=== PATIENT | female | born 1930 | race Caucasian/White ===

== ENCOUNTER → 2016-03-28 | Outpatient (REF) | payer MEDICARE, OTHER ==
[~2016-03-28] MED LIST: *ANUSOI RE; /ALEN70TA; /CELE20CA; ACET500C PO; ACET65TA PO; ALBU17IN INH; ALEN70TA39 PO; AMBI5TAB OR; AMBI5TAB PO; ANUS2.5C2 EXT; ASPE10LO TD; ASPI81TA21 PO; ASPI81TA3 OR; ATIV0.5T; BABY81CH; BIOT10005 PO; CALC-205 PO; CALC25TA PO; CALCTAB22 PO; CALCTAB68 PO; CALCTAB75 PO; CENTTAB PO; CIPR500T89 PO; CIPRO PO; COLA100C2; DOXY150C PO; ERYT5OPO OU; ESTR62CR PV; EUCERIN TOP; FLAX10002 PO; FLON0.054; FOSA70TA PO; GABA-279 PO; GABA-283 PO; GABA100C PO; GABA600T PO; GLUC500T3 OR; IBUP400T OR; KEFL500C PO; LEVO25TA5 PO; LEVO500T32 PO; LIDO1OIN2 TOP; LIDO5DIS EX; LIDO5DIS36 TD; LIDO5TD TD; LORA-376 PO; LORA5SOL2 PO; MECL-68 PO; MECL25CH PO; MELA1CAP2 PO; MELA3TAB PO; MELO15TA4 PO; MELOPOW PO; METAMUCIL PO; MULT1TAB8 PO; MULTIVIT PO; NEUR100C PO; NEUR300C; NEUR600T; OXYB10TA PO; OXYC1TAB23 PO; PAIN325T OR; PARO5TAB PO; PAXI10TA; PAXI10TA OR; PAXI10TA2 PO; PAXI20TA3 PO; PAXI30TA11 PO; PENN1.5S TD; PENN1.5S2 TD; PERC5TAB8; PERC5TAB8 PO; PROA1AER INH; REST0.05 OU; ROBITUSSIN PO; ROPI0.5T PO; ROPI1TAB PO; THERGRAN; TRAM50TA2 PO; TYLE325T5 PO; TYLE500T78 PO; TYLE650T25 PO; TYLENOL ARTHRITIS PO; VERA27.5; VITA100054 PO; VITA200016 PO; VITAD1000T PO; VITMTA PO; VOLT1GEL2 TD; XYLI500M MT; ZOCO20TA; ZOCO20TA PO; ZOCO40TA PO; [UNRECOGNIZED DRUG - CODE] PO; [UNRECOGNIZED DRUG - OTHER]; [UNRECOGNIZED DRUG - OTHER] IM; [UNRECOGNIZED DRUG - OTHER] PR; [UNRECOGNIZED DRUG - OTHER] TOP; calcium citrate; compound cream TOP; estrace PV; flax seed oil PO; konsyl PO; lidoderm patch; melatonin PO; restasis OU
== END ==
LOC: M SMT 12:49
PROVIDERS: ATTEND Nurse Practitioner Family
DX: N39.41 Urge incontinence (principal)
CPT/HCPCS: 51798; 81001; 87086; G0463

== ENCOUNTER 2016-06-30 10:18 | Emergency (ER) | payer MEDICARE, OTHER ==
[~2016-06-30] VITALS: Ht 154.9 cm; Wt 68.9 kg
--- NOTE | 2016-06-30 11:17 | REP ---
CT HEAD WITHOUT CONTRAST: HISTORY: Trauma. COMPARISON: 01/13/2015. Areas of decreased attenuation are present in the periventricular and subcortical white matter. This represents small vessel ischemic disease. There is no intraparenchymal hemorrhage, mass or midline shift. The ventricular system and cortical sulci as well as subarachnoid space in the posterior fossa are dilated consistent with mild volume loss. There is no extracerebral collection. There is no fracture. The visualized sinuses are clear. IMPRESSION: 1. Small vessel ischemic disease. 2. Mild volume loss. Signed by Eren Bruce MD 06/30/2016 11:19 A
--- NOTE | 2016-06-30 11:19 | REP ---
CT ORBITS WITHOUT CONTRAST: HISTORY: Trauma. The globes, optic nerves and rectus muscles are normal in appearance. There is no orbital lesion. There is no fracture. The visualized sinuses are clear. Soft tissue swelling is present over the left orbit. IMPRESSION: There is no orbital lesion or fracture. Signed by Eren Bruce MD 06/30/2016 11:26 A
[2016-06-30 11:25] VITALS: BP 141/65
== END 2016-06-30 11:34 | disposition home or self-care (01) ==
LOC: M ED 11:21
DX: S00.12XA Contusion of left eyelid and periocular area, initial encounter (principal); W01.198A Fall on same level from slipping, tripping and stumbling with subsequent striking against other object, initial encounter; Y92.099 Unspecified place in other non-institutional residence as the place of occurrence of the external cause; Y93.89 Activity, other specified; Y99.9 Unspecified external cause status

== ENCOUNTER → 2016-10-05 | Outpatient (REF) | payer MEDICARE, OTHER ==
[~2016-10-05] MED LIST changes: +ARIC1TAB2 PO; +ASPI1TAB PO; -BIOT10005 PO; +BIOT10008 PO; +CIPR-249 PO; -CIPR500T89 PO; +COUM2.5T17 PO; +CULT10CA2 PO; +IMOD2TAB16 PO; +LEVO500T3 PO; -LEVO500T32 PO; -LIDO5DIS36 TD; +LIDO5DIS41 TD; -LORA-376 PO; +LORA0.5T11 PO; +LORA10TA2 PO; +MELO7.5T7 PO; +MEMA1TAB2 PO; +MYRB50TA PO; +NAPR1TAB41 PO; +PARO10TA3 PO; +PAXI10TA12 PO; -PAXI10TA2 PO; +PAXI20TA29 PO; -PAXI20TA3 PO; -PROA1AER INH; +PROAAER10 INH
== END ==
LOC: M LAB REF 12:50
PROVIDERS: ATTEND Internal Medicine
DX: N76.0 Acute vaginitis (principal)

== ENCOUNTER 2017-01-16 11:41 | Inpatient (IN) | payer MEDICARE, OTHER ==
[~2017-01-16] VITALS: Ht 160 cm; Wt 66.0 kg
[2017-01-16 12:15] VITALS: BP 144/64
[2017-01-16] MEDS: ACETAMINOPHEN 500 MG TAB PO SCH ×2 (14:34→21:51)
[2017-01-16] MEDS ORDERED: WARFARIN SOD 5 MG TAB PO ONE (17:00)
[2017-01-16] MEDS: GABAPENTIN 100 MG CAP PO SCH (17:02)
[2017-01-16 20:00] VITALS: BP 118/67
[2017-01-16] MEDS: GABAPENTIN 300 MG CAP PO SCH (21:51)
[2017-01-16] MEDS: MEMANTINE 5MG TABLET (NAMENDA) PO SCH (21:51)
[2017-01-16] MEDS: rOPINIRole 1MG TAB PO SCH (21:51)
[2017-01-16] MEDS: SENNA 8.6 MG TAB (SENOKOT) PO SCH (21:51)
--- NOTE | 2017-01-16 23:06 | PMRHPE ---
DATE OF ADMISSION: 01/16/2017 REASON FOR ADMISSION: Rehabilitation of left hip fracture, status post closed reduction internal fixation with cephalomedullary nail. HISTORY OF THE PRESENT ILLNESS: The patient is a right-handed elderly white female who on 01/14/2017 was at the grocery store and ended up falling onto her left side with marked pain in her left hip and was found to have sustained a left hip fracture when brought to the emergency room at [facility]. The patient was assessed and felt to be appropriate for a cephalomedullary nail insertion, and this was performed on 01/14/2017. The patient then started in physical and occupational therapy yesterday, 01/15/2017, and this right-handed elderly white female did reasonably well in it. She has been previously living independently at home with a multitude of medical problems. PAST MEDICAL HISTORY: Includes atherosclerotic cardiovascular disease with hypertension and elevated lipids, and patient now with anemia secondary to the fracture. She also has had ongoing spinal stenosis and degenerative joint disease with marked degenerative changes of the wrists and hands and moderate to severe arthritic changes of major joints. She is also hypothyroid and has osteoporosis, and is reported to have neuropathy, though it is unclear whether this is more of a radiculopathy. PAST SURGICAL HISTORY: Includes an L4-5 lumbar spine fusion 10 years ago. ALLERGIES: To BEE VENOM, DICLOFENAC, MANGOES and TAPE. 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 and 4:00 p.m. and then 600 mg at bedtime for neurogenic pain - Synthroid 25 mcg by mouth daily for hypothyroidism - loratadine 10 mg daily for allergies - Namenda 5 mg twice a day for organic brain syndrome - Paxil 10 mg per day for mood - Requip 1 mg by mouth nightly for restless leg syndrome - Patient currently on Coumadin for deep vein thrombosis (DVT) prophylaxis; to receive 5 mg tonight and subsequently will be ordered by orthopedics with target range of 1.7 to 2.0 on pro-time/INR testing. - tramadol 50 mg every 6 hours as needed for moderate to severe pain - Senokot one tablet twice a day for bowel management FAMILY HISTORY: Noncontributory to her fall. She does note having four children, and they are all healthy. SOCIAL HISTORY: The patient is , lives alone and has been modified independent in activities of daily living (ADLs) in the duplex she lives in, occasionally receiving some assistance. She is retired as a elementary school director. No tobacco, no alcohol and no illicit drug history. REVIEW OF SYSTEMS: Includes some problems with memory and feeling that sometimes she fatigues easily but otherwise negative. She does use glasses for visual correction. PHYSICAL EXAMINATION: In general, the patient is an alert and well oriented, pleasant, elderly white female who sometimes offers up different expressions of the amount of work she is anticipating doing in therapy, but then is able to express where she is at and why she is here, and her desire to work, get stronger and return home, so she can take care of her cat, as well as have her independence back. She is 5 feet 3 inches, weighs 69.5 kg. Vital Signs: Temperature is 98.9, blood pressure 144/64 with a pulse of 74, respiratory rate of 18 and oxygen saturation is 97% on room air. HEENT: Normocephalic, atraumatic, using glasses for visual correction. Hearing is fairly good. Face has normal symmetry. There is no dysarthria noticed in speech. Nasal passages are clear. Septum is straight. Tongue is midline. No carotid bruits were appreciated. The neck is supple on exam. Lungs are clear in all case to auscultation. Coronary shows a regular rate and rhythm with normal S1, S2, without S3, S4, murmurs or rub. Pulses are 2/4 bilateral radial pulses, fair perfusion and normal warmth in bilateral upper and lower extremities. Extremities with functional range of motion of bilateral upper and right lower extremity. Some guarding of the left hip area. However, there is notable nodularity seen in the MP, PIP and DIP joints of both hands and some mild atrophy seen in the hand musculature, and some arthritic change also seen in the feet. Neurologically, the patient is alert and oriented to person, place, time and general situation. Memory is fair. Speech is clear, coherent, appropriate. Affect slightly anxious with minimal flattening noted and in general, pleasant and cooperative. Light touch and vibration are intact in bilateral upper extremities but diminished in the distal lower extremities versus upper extremities and proximal lower extremities. Tone is within normal limits in bilateral upper and lower extremities. Deep tendon reflexes show 2/4 biceps, brachial radialis, 1/4 triceps, knee jerks and trace ankle jerks in a symmetrical pattern. DIAGNOSTIC DATA: Patient with good positioning on postoperative x-ray and CBC shows normal white count with moderate anemia with a hemoglobin of 9.7 and hematocrit of 29.8%. Electrolytes: BMP shows normal sodium, potassium, bicarbonate, mildly elevated at 110 chloride. BUN and creatinine are normal. Fasting blood sugar this morning, however, was 279. On INR today, the patient was 1.28, target 1.7 to 2.0. ASSESSMENT/PLAN: 1. Rehabilitation of the left hip fracture, status post cephalomedullary nail, which is in good position: Patient starting a program of physical, occupational therapy, has done reasonably well in her initial evaluations and physical therapy (PT) and occupational therapy (OT) and will now progress on to 1-1/2 hours of PT and 1-1/2 hours of OT per day to regain spinal strength and learn adaptive activities of daily living using front wheel walker to help with support and stabilization and weightbearing as tolerated status on the left lower extremity. The patient is anticipated to be able to do the 3 hours of therapy per day and progress to discharge goals to return home in a modified independent level of function in 10 days. She does seem to have fairly good motivation for this. 2. Organic brain syndrome. The patient has been doing fairly well it appears with support from Aricept and Namenda and treatment for any mood with Paxil. We will continue to observe this; however, I will go ahead and have speech therapy do cognitive memory evaluation and help the patient with organizing techniques for information so that this may help her learn appropriate safe mobility and activities of daily living. 3. Neuropathy. The patient will continue on the gabapentin. She is noted to have some distal light touch and vibratory decrease on exam. 4. Chronic diarrhea. This appears to be secondary to the Aricept and Namenda, and I will avoid using most laxatives; however, I do feel that patients with this problem tend to do better if they have a bulking agent and so I will go ahead with the Senna and avoid agents that may increase further peristalsis or add to an already overly watery diarrhea. 5. Deep vein thrombosis (DVT) prophylaxis. The patient will continue on Coumadin along with sequential compression stocking, thromboembolism deterrent (LUCÍA) hose and progressive ambulation to try to protect against any clot formation. POSTADMISSION PHYSICIAN EVALUATION: The patient is consistent with preadmission screening. She does seem to be cognitively fairly aware and understanding of the goals and objective of this admission, and we will proceed with a program of physical and occupational therapy for her hip fracture, along with speech/language pathology assessing memory and cognition, and trying to give the patient adaptic techniques so that she can apply these to the new learning in physical and occupational therapy, as well as provide better structure to her day. I do feel the patient is going to be able to participate in and benefit from 3 hours of therapy a day and has a better prognosis for return to modified independent, living alone at her home. I estimate her length of stay at 10 days. Time spent on chart review, history and physical and documentation is greater than 70 minutes. WILI
[2017-01-17] MEDS: LEVOTHYROXINE 25MCG TABLET (0.025MG) PO SCH (05:49)
[2017-01-17] MEDS: ACETAMINOPHEN 500 MG TAB PO SCH ×3 (05:50→21:03)
[2017-01-17 06:00] VITALS: BP 131/68
[2017-01-17 07:07] LABS: BASO % 0.3 % (0.0-1.0); EOS # 0.6 10^3/uL (0.0-0.50); EOS % 6.3 % (0.0-3.0); IMMATURE GRANULOCYTE % 0.5 % (0-0); LYMPH # 1.9 10^3/uL (1.5-4.5); LYMPH % 20.1 % (24.0-44.0); MEAN CORPUSCULAR HEMOGLOBIN 30.8 pg (27.0-33.0); MEAN CORPUSCULAR HGB CONC 33.2 g/dl (32.0-36.5); MEAN CORPUSCULAR VOLUME 92.8 fl (80.0-96.0); MONO # 0.8 10^3/uL (0.0-0.8); MONO % 8.8 % (0.0-5.0); NEUTROPHILS # 6.1 10^3/uL (1.8-7.7); PLATELET COUNT, AUTOMATED 279 10^3/uL (150-450); RED CELL DISTRIBUTION WIDTH 13.3 % (11.5-14.5); WHITE BLOOD COUNT 9.5 10^3/uL (4.0-10.0)
[2017-01-17 07:22] LABS: INR 1.7
[2017-01-17 07:28] LABS: ALBUMIN 2.5 GM/DL (3.2-5.2); ALKALINE PHOSPHATASE 45 U/L (45-117); ALT/SGPT 19 U/L (12-78); ANION GAP 6 MEQ/L (8-16); AST/SGOT 21 U/L (7-37); BILIRUBIN,TOTAL 0.4 MG/DL (0.2-1.0); BLOOD UREA NITROGEN 10 MG/DL (7-18); CALCIUM LEVEL 7.9 MG/DL (8.8-10.2); CARBON DIOXIDE LEVEL 26 MEQ/L (21-32); CHLORIDE LEVEL 110 MEQ/L (98-107); GLOMERULAR FILTRATION RATE > 60.0 (>32); GLUCOSE, FASTING 105 MG/DL (83-110); POTASSIUM SERUM 4.1 MEQ/L (3.5-5.1); SODIUM LEVEL 142 MEQ/L (136-145)
[2017-01-17] MEDS: GABAPENTIN 100 MG CAP PO SCH ×2 (08:20→16:39)
[2017-01-17] MEDS: DONEPEZIL 5 MG TAB PO SCH (08:20)
[2017-01-17] MEDS: SENNA 8.6 MG TAB (SENOKOT) PO SCH ×2 (08:20→17:12)
[2017-01-17] MEDS: MEMANTINE 5MG TABLET (NAMENDA) PO SCH ×2 (08:20→20:54)
[2017-01-17] MEDS: PARoxetine 10MG TABLET PO SCH (08:20)
[2017-01-17] MEDS: LORATADINE 10 MG TAB PO SCH (08:20)
[2017-01-17] MEDS: FLUTICASONE PROP 0.05% NASAL SPRAY 16 GM (FLONASE) SCH (09:00)
--- NOTE | 2017-01-17 11:51 | IPNPDOC ---
PM&R Progress Note Cargo Agent Progress Note DATE OF SERVICE: 01/17/17 DATE OF ADMISSION: Jan 16, 2017 at 12:10 INPATIENT REHABILITATION ADMISSION DAY: #2 SUBJECTIVE: The patient is a right-handed elderly white female who on 2016 was at the grocery store and ended up falling onto her left side with marked pain in her left hip and was found to have sustained a left hip fracture when brought to the emergency room at [facility]. The patient was assessed and felt to be appropriate for a cephalomedullary nail insertion, and this was performed on 01/14/2017. She has been previously living independently at home with a multitude of medical problems. Patient with some chronic diarrhea from Aricept and Namenda, which I am starting Senna to increase bulk to absorb and slow the bowel. Patient with some left hip pain and limited endurance in PT today, otherwise without complaints. ALLERGIES: See Below MEDICATIONS: Reviewed, see below. OBJECTIVE: VITAL SIGNS: Please see below. PHYSICAL EXAMINATION: GENERAL: Short well-nourished alert and oriented to person, place, general time and situation, elderly white female in very mild musculoskeletal distress favoring left hip. HEENT: Normocephalic/atraumatic and glasses for visual correction. CARDIOVASCULAR: Regular rate and rhythm with normal S1-S2. 2/4 bilateral radial pulses. LUNGS: All case clear auscultation. ABDOMEN: Normal bowel sounds in all quadrants. NEUROLOGICAL: Speech is clear coherent and appropriate. Affect is pleasant cooperative. Good functional motor range and strength in bilateral uppers and right lower extremities with some guarding of the left hip area. SKIN: Left hip incisions covered with foam dressing no significant drainage, heat, erythema and normal localized tenderness. LABORATORY DATA: Reviewed. Please see below. MICROBIOLOGY: Please see below. IMAGING: No new imaging studies. DVT prophylaxis ordered?: Coumadin, sequential compression stockings and LUCÍA hose. INR is 1.70 today and orthopedics as ordered 5 mg of Coumadin for 5 PM tonight. ASSESSMENT AND PLAN: 1. Left total hip fracture with closed reduction and cephalo-medullary nail fixation: Patient appears to be having reasonable pain control and is starting in physical and occupational therapy to work on ADLs, strength, endurance, balance and mobility. Anticipated length of stay is 10 days. 2. OBS: Speech therapy starting evaluation today. Patient seems to be showing better motivation and focus in the morning versus last night. Patient continues on Aricept and Namenda. We will try and work with patient to structure and organize memory and cognition to allow her the best learning experience in therapies. 3. Anemia: H&H is 9.0 and 27.1% today on 01/17/17. We will continue to follow this along with blood pressures/heart rate. 4. Hypoalbuminemia: Currently had 2.5 for albumin today on 01/17/17. We will continue to follow this and try and improve nutrition to aid healing. TIME SPENT: Chart Review, examination and documentation required greater than 25 minutes. Allergies Coded Allergies: Diclofenac (Verified Allergy, Intermediate, RASH, 09/05/13) Bee Venom (Unverified Allergy, Unknown, SWELLING, 06/15/12) [place] (Unverified Allergy, Unknown, MOUTH SWELLING, 06/01/09) TAPE (Verified Allergy, Unknown, SENSITIVE TO TAPE, 04/21/08) Vital Signs Vital Signs Date Time Temp Pulse Resp B/P (MAP) Pulse Ox O2 Delivery O2 Flow Rate FiO2 01/17/17 09:00 18 Room Air 01/17/17 06:00 99.3 90 131/68 (89) 95 Laboratory Data CBC/BMP Laboratory Tests 01/17/17 06:19 Red Blood Count 2.92 L, Mean Corpuscular Volume 92.8, Mean Corpuscular Hemoglobin 30.8, Mean Corpuscular Hemoglobin Concent 33.2, Red Cell Distribution Width 13.3, Neutrophils (%) (Auto) 64.0, Lymphocytes (%) (Auto) 20.1 L, Monocytes (%) (Auto) 8.8 H, Eosinophils (%) (Auto) 6.3 H, Basophils (%) (Auto) 0.3, Neutrophils # (Auto) 6.1, Lymphocytes # (Auto) 1.9, Monocytes # ( Auto) 0.8, Eosinophils # (Auto) 0.6 H, Basophils # (Auto) 0.0, Calcium Level 7.9 L, Aspartate Amino Transf (AST/SGOT) 21, Alanine Aminotransferase (ALT/SGPT ) 19, Alkaline Phosphatase 45, Total Bilirubin 0.4, Total Protein 5.0 #L, Albumin 2.5 #L Labs 24H Laboratory Tests 2 01/17/17 04:46: Urine Appearance HAZY, Urine Color YELLOW, Urine pH 5.0, Urine Specific [place] 1.017, Urine Protein NEGATIVE, Urine Glucose (UA) NEGATIVE, Urine Ketones NEGATIVE, Urine Urobilinogen 0.2, Urine Bilirubin NEGATIVE, Urine Leukocyte Esterase TRACEH, Urine Blood NEGATIVE, Urine Nitrite NEGATIVE, Urine WBC (Auto) 26H, Urine RBC (Auto) 6H, Urine Hyaline Casts (Auto) 0, Urine Bacteria (Auto) NEGATIVE, Urine Squamous Epithelial Cells 0, Urine Mucus (Auto) SMALL, Urine Sperm (Auto) 01/17/17 06:19: Immature Granulocyte % (Auto) 0.5H, White Blood Count 9.5, Red Blood Count 2.92L , Hemoglobin 9.0L, Hematocrit 27.1L, Mean Corpuscular Volume 92.8, Mean Corpuscular Hemoglobin 30.8, Mean Corpuscular Hemoglobin Concent 33.2, Red Cell Distribution Width 13.3, Platelet Count 279, Neutrophils (%) (Auto) 64.0, Lymphocytes (%) (Auto) 20.1L, Monocytes (%) (Auto) 8.8H, Eosinophils (%) (Auto) 6.3H, Basophils (%) (Auto) 0.3, Neutrophils # (Auto) 6.1, Lymphocytes # (Auto) 1.9, Monocytes # (Auto) 0.8, Eosinophils # (Auto) 0.6H, Basophils # (Auto) 0.0, Immature Granulocyte # (Auto) 0.1H, Nucleated Red Blood Cells % (auto) 0.0, Prothrombin Time 20.4H, Prothromb Time International Ratio 1.70, Anion Gap 6L, Glomerular Filtration Rate > 60.0, Blood Urea Nitrogen 10, Creatinine 0.50L, Sodium Level 142, Potassium Level 4.1, Chloride Level 110H, Carbon Dioxide Level 26, Calcium Level 7.9L, Aspartate Amino Transf (AST/SGOT) 21, Alanine Aminotransferase (ALT/SGPT) 19, Alkaline Phosphatase 45, Total Bilirubin 0.4, Total Protein 5.0#L, Albumin 2.5#L, Albumin/Globulin Ratio 1.00 Current Medications Current Medications Current Medications Acetaminophen (Tylenol Tab) 1,000 mg Q8H PO Last administered on 01/17/17t 05: 50; Start 01/16/17 at 14:00; Stop 02/15/17 at 13:59 Donepezil HCl (AriCEPT) 10 mg DAILY PO Last administered on 01/17/17 08:20; Start 01/17/17 at 09:00; Stop 02/16/17 at 08:59 Fluticasone Propionate (Flonase 0.05% Nasal [place]) 2 spray DAILY NA Last administered on 01/17/17 09:00; Start 01/17/17 at 09:00; Stop 02/16/17 at 08:59 Gabapentin (Neurontin) 100 mg BID@0800,1600 PO Last administered on 01/17/17 08:20; Start 01/16/17 at 16:00; Stop 02/15/17 at 15:59 Gabapentin (Neurontin) 600 mg QHS PO Last administered on 01/16/17 21:51; Start 01/16/17 at 21:00; Stop 02/15/17 at 20:59 Levothyroxine Sodium (Synthroid) 25 mcg DAILY@06 PO Last administered on 05:49; Start 01/17/17 at 06:00; Stop 02/16/17 at 05:59 Loratadine (Claritin) 10 mg DAILY PO Last administered on 01/17/17 08:20; Start 01/17/17 at 09:00; Stop 02/16/17 at 08:59 Memantine (Namenda) 5 mg BID PO Last administered on 01/17/17 08:20; Start at 21:00; Stop 02/15/17 at 20:59 Paroxetine HCl (PAXil) 10 mg DAILY PO Last administered on 01/17/17 08:20; Start 01/17/17 at 09:00; Stop 02/16/17 at 08:59 Ropinirole HCl (Requip) 1 mg QHS PO Last administered on 01/16/17 21:51; Start 01/16/17 at 21:00; Stop 02/15/17 at 20:59 Senna (Senokot) 1 tab BID PO Last administered on 01/17/17 08:20; Start at 21:00; Stop 02/15/17 at 20:59 Tramadol HCl (Ultram) 50 mg Q6HP PRN PO MODERATE PAIN (PS 6-10); Start at 12:00; Stop 11/14/17 at 11:59 XIOMARA WARREN MD Jan 17, 2017 11:51
--- NOTE | 2017-01-17 12:30 | CR.PDOC ---
[facility] Consultation Consultation CONSULTATION REPORT FOR: Dr Tarango REASON FOR CONSULTATION: Medical Management DATE OF VISIT: 01/17/17 ATTENDING: Dr. Jeb Macias PCP: Dr Penn HPI: This is an 86-year-old female who was in her usual state of health until the morning of admission and was out in the grocery store where she extended her arm upwards to try and reach for a product when she lost her balance and fell on her left side. She was then brought to the emergency room. She was found to have a left intertrochanteric fracture of the neck of femur. Orthopedic service was called and patient was taken to the operating room (OR) 01/14/17 for Lt hip ORIF/nailing. Transferred to ARU, Dr Tarango 01/16/18. Pt is currently OOB to chair. Pt states pain controlled. No concerns at this time. Denies any fevers, chills, weakness, fatigue, Headache, Chest Pain, Shortness of breath, cough, palpitations, abdominal pain, N/V/D or changes in bowel or bladder habits. Consultation requested for medical management. PAST MEDICAL HISTORY: 1. Hypertension. 2. Hyperlipidemia. 3. Spinal stenosis. 4. Chronic back pain. 5. Bilateral lower extremity weakness secondary to spinal stenosis. 6. Osteoporosis. 7. Osteoarthritis. 8. Hypothyroidism. 9. Dementia. 10. Overactive bladder and urge incontinence. PAST SURGICAL HISTORY: 1. L4-L5 fusion. 2. Colonoscopy. PE: GEN: 86yoF, appears stated age. Well-nourished, well developed. No acute distress. Alert and oriented x 3. Pleasant, interactive. HEENT: Normocephalic, atraumatic. Sclera are nonicteric. Conjunctiva without injection. Nose midline. No facial asymmetry. Moist mucous membranes. Dentition fair. Pharynx pink and moist, no cobblestoning. Neck supple, trachea midline. CHEST: Regular rate and rhythm, +S1, +S2 LUNGS: Clear to auscultation bilaterally. No wheezes, rales, or rhonchi.Patient is speaking in full sentences. No accessory muscle use. ABD: Round, soft, non-tender, non-distended. +Bowel sounds throughout. No rebound or guarding. No costovertebral angle tenderness. EXT: Pulses 2+ bilaterally dorsalis pedis and radial. No lower extremity edema appreciated. SKIN: [place], dry, warm. Capillary refill <2sec. No rashes. NEURO: Alert and oriented x 3. Cranial nerves III-XII are intact. No focal deficits appreciated. A&P: This is an 86-year-old female who was in her usual state of health until the morning of admission and was out in the grocery store where she extended her arm upwards to try and reach for a product when she lost her balance and fell on her left side. She was then brought to the emergency room. She was found to have a left intertrochanteric fracture of the neck of femur. Orthopedic service was called and patient was taken to the operating room (OR) 01/14/17 for Lt hip nailing/ORIF. Transferred to ARU, Dr Tarango 01/16/18. 1. S/P Mechanical fall/lt hip fracture S/P nailing as per Orthopedics. Mgmt as per Orthopedics. ARU as per Dr Tarango. PT/OT as per AKANKSHA/Dr Tarango. ST as per AKANKSHA/Dr Tarango. Pain control as per Dr Tarango/AKANKSHA. Bowel care as per AKANKSHA/Dr Tarango. DVT prophylaxis. Coumadin as per Orthopedics. 2. Hypothyroid. Cont supplement. 3. Dementia. Cont Aricept/Namenda. 4. Anxiety/depression. Paxil. 5. Allergic rhinitis. Flonase/Claritin. 6. Chronic Back pain. Continue gabapentin. 7. Post operative anemia. Check Iron studies, B12, folate. Check stool OB. Monitor. 8. Abnormal TSH. FT4 WNL 01/16/17. Thank you for your consultation. We will continue to follow along with you. Vital Signs/I&O Vital Signs Date Time Temp Pulse Resp B/P (MAP) Pulse Ox O2 Delivery O2 Flow Rate FiO2 01/17/17 09:00 18 Room Air 01/17/17 06:00 99.3 90 131/68 (89) 95 I&O- Last 24 Hours up to 6 AM 01/18/17 06:00 Intake Total 180 ml Balance 180 ml Laboratory Data Labs 24H Laboratory Tests 2 01/17/17 04:46: Urine Appearance HAZY, Urine Color YELLOW, Urine pH 5.0, Urine Specific [place] 1.017, Urine Protein NEGATIVE, Urine Glucose (UA) NEGATIVE, Urine Ketones NEGATIVE, Urine Urobilinogen 0.2, Urine Bilirubin NEGATIVE, Urine Leukocyte Esterase TRACEH, Urine Blood NEGATIVE, Urine Nitrite NEGATIVE, Urine WBC (Auto) 26H, Urine RBC (Auto) 6H, Urine Hyaline Casts (Auto) 0, Urine Bacteria (Auto) NEGATIVE, Urine Squamous Epithelial Cells 0, Urine Mucus (Auto) SMALL, Urine Sperm (Auto) 01/17/17 06:19: Immature Granulocyte % (Auto) 0.5H, White Blood Count 9.5, Red Blood Count 2.92L , Hemoglobin 9.0L, Hematocrit 27.1L, Mean Corpuscular Volume 92.8, Mean Corpuscular Hemoglobin 30.8, Mean Corpuscular Hemoglobin Concent 33.2, Red Cell Distribution Width 13.3, Platelet Count 279, Neutrophils (%) (Auto) 64.0, Lymphocytes (%) (Auto) 20.1L, Monocytes (%) (Auto) 8.8H, Eosinophils (%) (Auto) 6.3H, Basophils (%) (Auto) 0.3, Neutrophils # (Auto) 6.1, Lymphocytes # (Auto) 1.9, Monocytes # (Auto) 0.8, Eosinophils # (Auto) 0.6H, Basophils # (Auto) 0.0, Immature Granulocyte # (Auto) 0.1H, Nucleated Red Blood Cells % (auto) 0.0, Prothrombin Time 20.4H, Prothromb Time International Ratio 1.70, Anion Gap 6L, Glomerular Filtration Rate > 60.0, Blood Urea Nitrogen 10, Creatinine 0.50L, Sodium Level 142, Potassium Level 4.1, Chloride Level 110H, Carbon Dioxide Level 26, Calcium Level 7.9L, Aspartate Amino Transf (AST/SGOT) 21, Alanine Aminotransferase (ALT/SGPT) 19, Alkaline Phosphatase 45, Total Bilirubin 0.4, Total Protein 5.0#L, Albumin 2.5#L, Albumin/Globulin Ratio 1.00 CBC/BMP Laboratory Tests 01/17/17 06:19 Red Blood Count 2.92 L, Mean Corpuscular Volume 92.8, Mean Corpuscular Hemoglobin 30.8, Mean Corpuscular Hemoglobin Concent 33.2, Red Cell Distribution Width 13.3, Neutrophils (%) (Auto) 64.0, Lymphocytes (%) (Auto) 20.1 L, Monocytes (%) (Auto) 8.8 H, Eosinophils (%) (Auto) 6.3 H, Basophils (%) (Auto) 0.3, Neutrophils # (Auto) 6.1, Lymphocytes # (Auto) 1.9, Monocytes # ( Auto) 0.8, Eosinophils # (Auto) 0.6 H, Basophils # (Auto) 0.0, Calcium Level 7.9 L, Aspartate Amino Transf (AST/SGOT) 21, Alanine Aminotransferase (ALT/SGPT ) 19, Alkaline Phosphatase 45, Total Bilirubin 0.4, Total Protein 5.0 #L, Albumin 2.5 #L Allergies Coded Allergies: Diclofenac (Verified Allergy, Intermediate, RASH, 09/05/13) Bee Venom (Unverified Allergy, Unknown, SWELLING, 06/15/12) Gamal (Unverified Allergy, Unknown, MOUTH SWELLING, 06/01/09) TAPE (Verified Allergy, Unknown, SENSITIVE TO TAPE, 04/21/08) Home Medications Scheduled (Multi Vitamin Daily) 1 Tab Tab, 1 TAB PO DAILY, (Reported) (Paroxetine) 10 Mg Tab, 10 MG PO DAILY, (Reported) (Restasis) 0.05 % Emu, 1 DROP OU BID, (Reported) Calcium/Vitamin D (Calcium 600 + D 600-400 mg-Unit) 1 Tab Tab, 1 TAB PO DAILY, ( Reported) Donepezil Hydrochloride (Aricept) 10 Mg Tab, 10 MG PO DAILY, (Reported) Gabapentin (Gabapentin) 600 Mg Tab, 600 MG PO QHS, (Reported) Gabapentin (Gabapentin) 100 Mg Cap, 100 MG PO BID, (Reported) TAKES AT 0800/1600 Lactobacillus Rhamnosus (Culturelle) 1 Cap Cap, 1 CAP PO DAILY, (Reported) Levothyroxine Sodium (Synthroid) 25 Mcg Tab, 25 MCG PO QAM, (Reported) Loratadine (Loratadine) 10 Mg Tab, 10 MG PO DAILY, (Reported) Memantine Hydrochloride (Memantine HCl) 10 Mg Tab, 5 MG PO BID, (Reported) CLINIC VISIT WITH DR.LAPOINTE EASON D/C ON 01/02, BUT PT STILL [facility] [employer] (Myrbetriq) 50 Mg Tab, 50 MG PO DAILY, (Reported) Ropinirole Hydrochloride (Ropinirole HCl) 1 Mg Tab, 1 MG PO QHS, (Reported) Warfarin Sod (Coumadin) 2.5 Mg Tab, 2 TAB PO ASDIRECTED, #90 MDD = 6 tabs Scheduled PRN Acetaminophen (Tylenol) 325 Mg Tab, 650 MG PO Q4HP PRN for PAIN / FEVER, ( Reported) Loperamide Hcl (Imodium A-D) 2 Mg Tab, 2 MG PO for DIARRHEA, (Reported) Tramadol HCl (Tramadol HCl) 50 Mg Tab, 1-2 TAB PO Q4H PRN for PAIN, #40 Inga Paulino Jan 17, 2017 12:30
[2017-01-17 14:00] VITALS: BP 120/63
[2017-01-17 14:05] LABS: FERRITIN 103 NG/ML (8-252); PERCENT SATURATION 11.6 % (13.2-45.0); TOTAL IRON BINDING CAPACITY 207 UG/DL (250-450)
[2017-01-17 14:18] LABS: FOLATE 18.1 NG/ML (>5.4); VITAMIN B12 LEVEL 307 PG/ML (247-911)
[2017-01-17] MEDS ORDERED: PNEUMOCOCCAL VACCINE 0.5ML SYRINGE(90732) PNEUMOVAX 23 IM ONE (15:00)
[2017-01-17] MEDS ORDERED: WARFARIN SOD 5 MG TAB PO ONE (17:00)
[2017-01-17 20:35] VITALS: BP 163/73
[2017-01-17] MEDS: rOPINIRole 1MG TAB PO SCH (20:54)
[2017-01-17] MEDS: GABAPENTIN 300 MG CAP PO SCH (20:54)
[2017-01-17] MEDS: traMADol 50 MG TAB PO PRN (21:08)
[2017-01-18 06:00] VITALS: BP 175/79
[2017-01-18] MEDS: LEVOTHYROXINE 25MCG TABLET (0.025MG) PO SCH (06:00)
[2017-01-18] MEDS: ACETAMINOPHEN 500 MG TAB PO SCH ×3 (06:12→21:11)
[2017-01-18 07:09] LABS: MEAN CORPUSCULAR HEMOGLOBIN 30.8 pg (27.0-33.0); MEAN CORPUSCULAR HGB CONC 33.5 g/dl (32.0-36.5); MEAN CORPUSCULAR VOLUME 92.1 fl (80.0-96.0); PLATELET COUNT, AUTOMATED 355 10^3/uL (150-450); RED CELL DISTRIBUTION WIDTH 13.4 % (11.5-14.5); WHITE BLOOD COUNT 10.2 10^3/uL (4.0-10.0)
[2017-01-18 07:28] LABS: INR 2.02
[2017-01-18 07:35] LABS: ALBUMIN 2.6 GM/DL (3.2-5.2); ALBUMIN/GLOBULIN RATIO 0.93 (1.00-1.93); ALKALINE PHOSPHATASE 51 U/L (45-117); ALT/SGPT 20 U/L (12-78); ANION GAP 10 MEQ/L (8-16); AST/SGOT 20 U/L (7-37); BILIRUBIN,TOTAL 0.6 MG/DL (0.2-1.0); BLOOD UREA NITROGEN 9 MG/DL (7-18); CALCIUM LEVEL 8.2 MG/DL (8.8-10.2); CARBON DIOXIDE LEVEL 24 MEQ/L (21-32); CHLORIDE LEVEL 109 MEQ/L (98-107); GLOMERULAR FILTRATION RATE > 60.0 (>32); GLUCOSE, FASTING 101 MG/DL (83-110); POTASSIUM SERUM 3.9 MEQ/L (3.5-5.1); SODIUM LEVEL 143 MEQ/L (136-145); TOTAL PROTEIN 5.4 GM/DL (6.4-8.2)
[2017-01-18] MEDS: GABAPENTIN 100 MG CAP PO SCH ×2 (08:38→16:52)
[2017-01-18] MEDS: PARoxetine 10MG TABLET PO SCH (08:38)
[2017-01-18] MEDS: LORATADINE 10 MG TAB PO SCH (08:38)
[2017-01-18] MEDS: DONEPEZIL 5 MG TAB PO SCH (08:38)
[2017-01-18] MEDS: MEMANTINE 5MG TABLET (NAMENDA) PO SCH ×2 (08:38→21:12)
[2017-01-18] MEDS: SENNA 8.6 MG TAB (SENOKOT) PO SCH ×3 (08:39→21:11)
[2017-01-18] MEDS: FLUTICASONE PROP 0.05% NASAL SPRAY 16 GM (FLONASE) SCH (08:39)
[2017-01-18 10:00] VITALS: BP 132/62
--- NOTE | 2017-01-18 10:51 | IPNPDOC ---
Date Seen The patient was seen on 01/18/17. Progress Note HPI: This is an 86-year-old female who was in her usual state of health until the morning of admission and was out in the grocery store where she extended her arm upwards to try and reach for a product when she lost her balance and fell on her left side. She was then brought to the emergency room. She was found to have a left intertrochanteric fracture of the neck of femur. Orthopedic service was called and patient was taken to the operating room (OR) 01/14/17 for Lt hip ORIF/nailing. Transferred to ARU, Dr Tarango 01/16/18. Pt is currently OOB to chair. Pt states pain controlled. No concerns at this time. Denies any fevers, chills, weakness, fatigue, Headache, Chest Pain, Shortness of breath, cough, palpitations, abdominal pain, N/V/D or changes in bowel or bladder habits. PAST MEDICAL HISTORY: 1. Hypertension. 2. Hyperlipidemia. 3. Spinal stenosis. 4. Chronic back pain. 5. Bilateral lower extremity weakness secondary to spinal stenosis. 6. Osteoporosis. 7. Osteoarthritis. 8. Hypothyroidism. 9. Dementia. 10. Overactive bladder and urge incontinence. PAST SURGICAL HISTORY: 1. L4-L5 fusion. 2. Colonoscopy. PE: GEN: 86yoF, appears stated age. Well-nourished, well developed. No acute distress. Alert and oriented x 3. Pleasant, interactive. HEENT: Normocephalic, atraumatic. Sclera are nonicteric. Conjunctiva without injection. Nose midline. No facial asymmetry. Moist mucous membranes. Dentition fair. Pharynx pink and moist, no cobblestoning. Neck supple, trachea midline. CHEST: Regular rate and rhythm, +S1, +S2 LUNGS: Clear to auscultation bilaterally. No wheezes, rales, or rhonchi.Patient is speaking in full sentences. No accessory muscle use. ABD: Round, soft, non-tender, non-distended. +Bowel sounds throughout. No rebound or guarding. No costovertebral angle tenderness. EXT: Pulses 2+ bilaterally dorsalis pedis and radial. No lower extremity edema appreciated. SKIN: [place], dry, warm. Capillary refill <2sec. No rashes. NEURO: Alert and oriented x 3. Cranial nerves III-XII are intact. No focal deficits appreciated. A&P: This is an 86-year-old female who was in her usual state of health until the morning of admission and was out in the grocery store where she extended her arm upwards to try and reach for a product when she lost her balance and fell on her left side. She was then brought to the emergency room. She was found to have a left intertrochanteric fracture of the neck of femur. Orthopedic service was called and patient was taken to the operating room (OR) 01/14/17 for Lt hip nailing/ORIF. Transferred to ARU, Dr Tarango 01/16/18. 1. S/P Mechanical fall/lt hip fracture S/P nailing as per Orthopedics. Mgmt as per Orthopedics. ARU as per Dr Tarango. PT/OT as per [facility]/Dr Tarango. ST as per [facility]/Dr Tarango. Pain control as per Dr Tarango/AKANKSHA. Bowel care as per [facility]/Dr Tarango. DVT prophylaxis. Coumadin as per Orthopedics. 2. Hypothyroid. Cont supplement. 3. Dementia. Cont Aricept/Namenda. 4. Anxiety/depression. Paxil. 5. Allergic rhinitis. Flonase/Claritin. 6. Chronic Back pain. Continue gabapentin. 7. Post operative anemia. 9.3 today Iron studies, B12, folate. stool OB neg. Monitor. 8. Abnormal TSH. FT4 WNL 01/16/17. 9. Leukocytosis, WBC 10.2. Pt is afebrile, Tmax 99.3 asymptomatic. Monitor CBC. I/S. VS, I&O, 24H, [place] Vital Signs/I&O Vital Signs Date Time Temp Pulse Resp B/P (MAP) Pulse Ox O2 Delivery O2 Flow Rate FiO2 01/18/17 10:00 132/62 (85) 01/18/17 08:00 Room Air 01/18/17 06:00 98.0 93 20 96 I&O- Last 24 Hours up to 6 AM 01/19/17 05:59 Intake Total 240 ml Output Total 450 ml Balance -210 ml Laboratory Data 24H LABS Laboratory Tests 2 01/18/17 06:36: Nucleated Red Blood Cells % (auto) 0.0, Prothrombin Time 23.6H, Prothromb Time International Ratio 2.02, Anion Gap 10, Glomerular Filtration Rate > 60.0, Blood Urea Nitrogen 9, Creatinine 0.50L, Sodium Level 143, Potassium Level 3.9, Chloride Level 109H, Carbon Dioxide Level 24, Calcium Level 8.2L, Aspartate Amino Transf (AST/SGOT) 20, Alanine Aminotransferase (ALT/SGPT) 20, Alkaline Phosphatase 51, Total Bilirubin 0.6, Total Protein 5.4L, Albumin 2.6L, Albumin/ Globulin Ratio 0.93L CBC/BMP Laboratory Tests 01/18/17 06:36 Red Blood Count 3.02 L, Mean Corpuscular Volume 92.1, Mean Corpuscular Hemoglobin 30.8, Mean Corpuscular Hemoglobin Concent 33.5, Red Cell Distribution Width 13.4, Calcium Level 8.2 L, Aspartate Amino Transf (AST/SGOT) 20, Alanine Aminotransferase (ALT/SGPT) 20, Alkaline Phosphatase 51, Total Bilirubin 0.6, Total Protein 5.4 L, Albumin 2.6 L Microbiology Microbiology 01/17/17 Stool Occult Blood ([facility]) - Final, Complete Inga Paulino Jan 18, 2017 10:51
[2017-01-18] MEDS: traMADol 50 MG TAB PO PRN ×2 (11:40→22:23)
[2017-01-18 14:00] VITALS: BP 173/81
--- NOTE | 2017-01-18 16:12 | IPNPDOC ---
PM&R Progress Note Fibrous Plasterer Progress Note DATE OF SERVICE: 01/18/17 DATE OF ADMISSION: Jan 16, 2017 at 12:10 INPATIENT REHABILITATION ADMISSION DAY: #3 SUBJECTIVE: The patient is a right-handed elderly white female who on 2016 was at the grocery store and ended up falling onto her left side with marked pain in her left hip and was found to have sustained a left hip fracture when brought to the emergency room at [facility]. The patient was assessed and felt to be appropriate for a cephalomedullary nail insertion, and this was performed on 01/14/2017. She has been previously living independently at home with a multitude of medical problems. Patient with some chronic diarrhea from Aricept and Namenda, which I am starting Senna to increase bulk to absorb and slow the bowel. Patient with some left hip pain and limited endurance in PT today, otherwise without complaints. ALLERGIES: See Below MEDICATIONS: Reviewed, see below. OBJECTIVE: VITAL SIGNS: Please see below. PHYSICAL EXAMINATION: GENERAL: Short well-nourished alert and oriented to person, place, general time and situation, elderly white female in very mild musculoskeletal distress favoring left hip. HEENT: Normocephalic/atraumatic and glasses for visual correction. CARDIOVASCULAR: Regular rate and rhythm with normal S1-S2. 2/4 bilateral radial pulses. LUNGS: All case clear auscultation. ABDOMEN: Normal bowel sounds in all quadrants. NEUROLOGICAL: Speech is clear coherent and appropriate. Affect is pleasant cooperative. Good functional motor range and strength in bilateral uppers and right lower extremities with some guarding of the left hip area. SKIN: Left hip incisions covered with foam dressing no significant drainage, heat, erythema and normal localized tenderness. LABORATORY DATA: Reviewed. Please see below. MICROBIOLOGY: Please see below. IMAGING: No new imaging studies. DVT prophylaxis ordered?: Coumadin, sequential compression stockings and LUCÍA hose. INR is2.02 today and orthopedics as ordered 1 mg of Coumadin for 5 PM tonight. ASSESSMENT AND PLAN: 1. Left total hip fracture with closed reduction and cephalo-medullary nail fixation: Patient appears to be having reasonable pain control and is starting in physical and occupational therapy to work on ADLs, strength, endurance, balance and mobility. Anticipated length of stay is 14 days. 2. OBS: Speech therapy starting evaluation today. Patient seems to be showing better motivation and focus in the morning versus last night. Patient continues on Aricept and Namenda. We will try and work with patient to structure and organize memory and cognition to allow her the best learning experience in therapies. ICING COATER notes tendency to perseverate on certain topics. 3. Anemia: H&H is 9.3 & 27.8% today on 01/18/17 up from 9.0 and 27.1% on . We will continue to follow this along with blood pressures/heart rate. Initial machine BP 175/79, was 132/62 on manual BP shortly thereafter. 4. Hypoalbuminemia: Currently had 2.6 for albumin today on 01/18/17 up from 2.5 yesterday. We will continue to follow this and try and improve nutrition to aid healing. 5. Urinary Retention: Patient with some large PVR's and trouble clearing them, so I will in light of elevated BP add Flomax 0.4mg QHS to her care regimen. REHAB. TEAM ROUNDS: Patient is making slower than initially anticipated gains in PT/OT. Some fear of LLE pain and persistence of attention to task are noted, but she is progressing. We anticipate she should reach D/C Goals by 01/29/17. Please see attached therapy notes below. TIME SPENT: Chart Review, examination and documentation required greater than 25 minutes. Patient: Ann Bloom : 1930 Age/Sex: 86/F Unit#: [id number] Room/Bed: [place] [address] User: Marci Sosa OT OT Date: 01/17/17 13:25 Type: OT Evaluation Time In * 07:05 Time Out * 08:20 OT Treatment Time-Minutes * 75 mins Type of Therapy Provided * Individual Unit * Acute Inpatient Rehab Occupational Therapy Evaluation * Initial Diagnosis * L hip fx Doctor's Order * Evaluation & Treatment Doctor's Order Details * Eval and treat 1.5 hours per day. 5 days per week. History of Present Illness * Pt admitted following fall at grocery store, resulting in L hip fx; s/p ORIF Precautions * Fall * WBAT Subjective * Pt supine upon OT arrival, agreeable to eval. Prior to admission Pt was Independent ADL's * Yes Prior to Admission Other Assist Pt Required * Pt reports being mod I with all ADL prior to admission. Pt reports she has assistance from [employer] for some cooking and cleaning assistance. Pt does drive, but she reports only short distances and only when there is less traffic during the day. Pain: Start of Session * 3 Pain: End of Session * 3 Pain Assessment Label * Left Hip * Pain Note Pt initially c/o no pain in supine, though states "I guess my legs hurt a little". With further questioning, pt reports increased pain in L hip. Upper Extremity Dominance * Right Range of Motion Assessment Label * Bilateral Shoulder Elbow Wrist Fingers * Active or Passive Active * ROM Within Normal Limits Within Functional Limits Muscle Tone Assessment Label * Bilateral Shoulder Elbow Wrist Fingers * Upper Extremity Status Tone/Synergy Within Normal Limits Strength Assessment Label * Bilateral * Upper Extremity Strength Location Elbow Wrist Commodity Broker * Upper Extremity Status Strength 4/5 * Comment: L shoulder 2+/5; R shoulder 3+/5 Movement Assessment Label * Bilateral * Upper Extremity Status Gross Motor Within Functional Limits Upper Body Muscle Tone Label * Bilateral * Upper Extremity Status Fine Motor Within Functional Limits * Other-Upper Extremity Status Fine Motor WFL for serial opposition. Sensation Assessment Label * Bilateral * Upper Extremity Status Sensation Within Normal Limits Edema Present * No Grooming (Hygiene) * Minimum Assist Bathing * Moderate Assist Dressing-Upper Body * Not Tested Dressing-Lower Body * Maximum Assist Transfers * Total Assist Bed Mobility * Standby Assist ADL Status Note * Pt completed bed mobility supine to sit EOB with SBA only, requiring increased time and use of bed rail. Pt completed sit<>stand transfer with min/mod assist initially, though unable to advance feet for stand pivot to w/c. 2 assist required for pt safety to transfer EOB>w/c using RW with VCs for advancing BLE toward chair. Pt then taken to bathroom via w/c and completed grooming at sink. Pt able to brush teeth, wash face and hands with set-up, then requires assist to comb hair thoroughly due to knots. Pt completed sponge bathing at sink- pt able to wash chest, abdomen, BUE, and bilateral thighs; requiring assist ith all other parts. Pt does not have UB clothing at this time, therefore unable to assess. LB dressing- pt initiated threading BLE into brief, though requires assist bilaterally due to increased hip pain. Pt able to thread LLE into pants, requiring assist to thread RLE into pants. Mod assist to stand at sink and pull up brief/pants. Pt requires total assist to don LUCÍA hose and B socks this date. Pt remained seated in w/c following ADLs, requesting assist to use her phone to call someone to bring clothing up to her. Pt then requires assist to use phone to order meals. All needs met, call light in reach. B. Oral Hygiene (includes gums in edentulous pts): * 05.Setup/clean up Asst Oral Hygiene Comments: * See ADL note. C. Toileting Hygiene (not transfers): * 01.Dependent Toileting Hygiene Comments: * See ADL note. E. Shower/Bathe Self (not transfers, can be sponge bath): * 03.Partial/Mod Assist Shower/Bathe Self Comments: * See ADL note. F. Upper Body Dressing (includes bra, not hospital gown): * 88.Not Attempted Upper Body Dressing Comments: * See ADL note. G. Lower Body Dressing (includes briefs and knee braces): * 02.Substantial/Max Assist Lower Body Dressing Comments: * See ADL note. H. Putting on/taking off footwear (includes TEDS and AFO): * 01.Dependent Putting on/taking off footwear Comments: * See ADL note. Sitting: Static * G- Sitting: Dynamic * G- Standing: Static * F- Standing: Dynamic * F- Functional Endurance * Fair Living Quarters * Apartment Number of Steps Inside Home * 0 Home Has * Shower * Curtain * Walker * Grab Bars * Shower Chair Home Needs * Hand-Held Shower Living Situation * Alone Other Home Accessibility Comments * Pt lives in duplex with no stairs. Visual Acuity * Intact Hearing * Intact Proprioceptive/Kinesthesia * Intact Praxis * Intact Orientation * Impaired Memory * Impaired Attention * Intact Follows Commands * Intact Safety Awareness * Intact Problem Solving * Impaired Motivation * Intact Family/Support * Intact Perception/Cognition/Psychosocial Comment * Pt initially A&O to self/"[place]" only due to just waking up. Pt reports she is at the "[facility]" and it is March. Pt became more alert and oriented throughout tx as she woke up, however. Pt polite and cooperative throughout tx. Discharge Recommendations * Home w/services Occupational Therapy Evaluation Notes * Pt demonstrates decreased independence with ADL from baseline due to recent hip fx. Pt will benefit from skilled OT to maximize independence with ADL, functional transfers, strengthening, and safety awareness for safe d/c home. OT Recommendations * OOB all meals, encourage participation with all ADL. See Acute In-Patient Rehab POC * Yes OT Interventions * Functional Training * Safety/Precautions * D/C Needs * HEP * ADL Training * Bed Mobility * Therapeutic Exercise * Balance Activities * Pt/Family Education Patient Education Completed * Yes Patient: Ann Bloom : 1930 Age/Sex: 86/F Unit#: [id number] Room/Bed: M4143/01 User: Marci Sosa OT OT Date: 01/18/17 14:31 Type: OT Progress Time In * 06:55 Time Out * 08:10 OT Treatment Time-Minutes * 75 mins Type of Therapy Provided * Individual Precautions * Fall * WBAT Unit * Acute Inpatient Rehab Pain Comment * Pt does not rate pain numerically. C/o increased pain in L knee this date. Subjective * Pt sitting on commode upon OT arrival, agreeable to OT tx for ADLs. Cognition Comments * A&Ox3 Sit to Stand * Minimum Assist Stand to Sit * Minimum Assist Toilet/Commode * Maximum Assist Functional Transfer Notes: * Min assist with VCs for safety for all functional sit<>stand transfers. Pt requires varrying assist throughout tx for transfers from mod to max assist for sequencing of task. Bathing * Minimum Assist Dressing-Upper Body * Standby Assist Dressing-Lower Body * Minimum Assist Grooming * Independent Toileting * Moderate Assist ADL Training Note * Pt on commode upon OT arrival. Nurse aide had threaded BLE into brief, though pt then able to pull up to thighs. Pt able to stand and required assist and VCs to complete clothing management in standing. Pt then transferred to w/c using RW with min/mod assist and VCs for sequencing. Pt then taken to bathroom for further ADLs. Pt completed sponge bathing at sink. Pt able to wash chest, abdomen, BUE, BLE using LHS, and assist in standing, though pt able to wash salazar/buttocks. UB dressing- set-up assist only. LB dressing- pt edu re: AE for LB dressing. Pt then able to thread BLE into pants and min assist to stand to pull up. Pt requires assist to don B TEDs. Pt able to thread BLE into socks using sock aide with VCs for sequence. Pt completed grooming at sink independently with increased time. Following therapeutic activity, pt did require use of bathroom again. Pt requires max assist to transfer on/off toilet and ongoing VCs for safety during standing for clothing management and hygiene. B. Oral Hygiene (includes gums in edentulous pts): * 06.Independent Oral Hygiene Comments: * See ADL note. C. Toileting Hygiene (not transfers): * 03.Partial/Mod Assist Toileting Hygiene Comments: * See ADL note. E. Shower/Bathe Self (not transfers, can be sponge bath): * 04.Sup/Touch Assist Shower/Bathe Self Comments: * See ADL note. F. Upper Body Dressing (includes bra, not hospital gown): * 05.Setup/clean up Asst Upper Body Dressing Comments: * See ADL note. G. Lower Body Dressing (includes briefs and knee braces): * 04.Sup/Touch Assist Lower Body Dressing Comments: * See ADL note. H. Putting on/taking off footwear (includes TEDS and AFO): * 04.Sup/Touch Assist Putting on/taking off footwear Comments: * See ADL note. Sit-Static * G Sit-Dynamic * G Stand-Static * F- Stand-Dynamic * F- Balance Training Note * Standing using RW. Sitting on commode and w/c. OT Intervention Note * See ADL notes above. Following bathing/dressing pt completed w/c propulsion x50' with min assist initially for sequencing. Pt progressed to completing task with supervision. Pt states she needed to use bathroom again, see ADL note for further details on toileting. Pt returned to her w/c and set-up for breakfast. Pt requests assistance to call her aide, using her cell phone. All needs met, call light in reach. BReakfast set-up in front of her. Discharge Recommendations * Home w/services Safe for discharge at this time * No Patient: Ann Bloom : 1930 Age/Sex: 86/F Unit#: [id number] Room/Bed: M4143/01 User: Maria Dolores Millard PT PT Date: 01/17/17 16:41 Type: PT Evaluation Time In * 10:03 Time Out * 10:35 PT Treatment Time-Minutes * 32 mins Physical Therapy Evaluation * Initial Type of Therapy Provided * Individual Diagnosis * left hip fracture, status post closed reduction internal fixation with cephalomedullary nail. Doctor's Order * Evaluation & Treatment Doctor's Order Detail * WBAT History of Present Illness * mechanical fall resulting in L hip fracture with repair on 01/14/17. Precautions * Fall * WBAT Unit * Acute Inpatient Rehab Prior to Admission Pt Independent with Gait * Yes Prior to Admission Patient Lives * Alone Prior to Admission Assistive Devices * Walker Prior to Admission Pt Requires Assist with * Meals * Cleaning Prior to Admission Other Assist Pt Requires * states she only used RW at night when walking from bed to toilet; has [employer] assist with meals, cleaning and transportation to grocery store Pain: Start of Session * 3 Pain: End of Session * 3 Pain Comment * States 3/10 at rest and 7/10 with movement Upper Extremity ROM Label * Bilateral * Upper Extremity ROM Comment see OT eval Lower Extremity ROM Label * Right Hip Knee Ankle * Active or Passive Active * ROM Within Normal Limits Within Functional Limits * Lower Extremity ROM Comment L LE limited secondary to surgical pain and weakness Upper Extremity Strength Label * Bilateral * Upper Extremity Strength Comment see OT eval Lower Extremity Strength Label * Right Hip Knee Ankle * Lower Extremity Status Strength 4/5 Transfer: Supine to Sit * Not Tested Transfer: Sit to Supine * Not Tested Transfer: Rolling * Not Tested Transfer: Sit to Stand * Minimum Assist Transfer: Stand to Sit * Minimum Assist Transfer: Bed to Chair * Not Tested Transfer: Chair to Bed * Not Tested Transfer: Toilet/Commode * Not Tested Transfer Comment * sit to stand to RW with Min A due to pain. Ambulation Distance * 5 Feet Ambulation Level of Assist * Minimum Assist Assistive Device Used * Rolling Walker * Gait Belt Weight BearingStatus * WBAT Left * FWB Right Able to Maintain Weight Bearing Status * Yes Gait Deviations * decreased step length Roni as pt c/o pain and anticipating increased pain with mobility. Increasing knee flexion bilaterally during stance as pt fatigued. Pt not stepping with increased weight through L LE at this time. Stair Skills Required * No Stairs Comment * no stair at home per pt. A. Roll Left and Right: * 88.Not Attempted B. Sit to Lying: * 88.Not Attempted C. Lying to Sitting on Side of Bed: * 88.Not Attempted D. Sit to Stand: * 03.Partial/Mod Assist E. Chair/[id number]-Pdzpe Transfer: * 88.Not Attempted F. Toilet Transfer: * 88.Not Attempted G. Car Transfer: * 88.Not Attempted H. Does the patient walk?: * 2. Yes I. Walk 10 Feet: * 88.Not Attempted J. Walk 50' with Two Turns: * 88.Not Attempted K. Walk 150 Feet: * 88.Not Attempted L. Walking 10' on uneven surfaces: * 88.Not Attempted M. 1 Step (curb): * 88.Not Attempted N. 4 Steps (with or without railing): * 88.Not Attempted O. 12 Steps (with or without railing): * 88.Not Attempted P. Picking up Object from the Floor (from a standing): * 88.Not Attempted Q. Does the patient use a w/c (other than just transport): * 0. No Sitting: Static * G- Sitting: Dynamic * G- Standing: Static * P Standing: Dynamic * P Functional Balance Comment * sitting assessed in chair; standing assessed with RW Living Quarters * Apartment Number of Steps Inside Home * 0 Number of Steps Outside Home * 0 Equipment at Home * Walker Other Equipment at Home * built in shower chair in walk in shower Other Equipment Needs for Home * will assess during episode of care Hearing * Intact Orientation * Person * Place * Date Memory * Intact Follows Commands * Intact Safety Awareness * Intact Family Support * Intact Coordination * Within Normal Limits Home Safety Status * Not Safe Patient Not Safe for Discharge Due to * decline in functional mobility Discharge Recommendations * Home Physical Therapy Evaluation Note * Pt sustained mechanical fall, resulting in L hip fracture with repair. Pt is WBAT L LE. Pt presents with decreased strength and ROM of L LE, impaired balance and a decline in functional mobility. Pt will begin skilled PT services 7 days/week x1-1.5 hours a day in order to facilitate (I) functional mobility with RW, improve strength, balance and ROM of L LE in order to return to PLOF. PT Interventions * Gait Training * Therapeutic Excercise * Functional Training * Bed Mobility * Balance Activities * Safety/Precautions * HEP * Pt./Family Education * D/C Needs Patient Education Completed * Yes Patient: Ann Bloom : 1930 Age/Sex: 86/F Unit#: [id number] Room/Bed: M4143/ User: Bebeto Chavez PT PT Date: 01/18/17 15:38 Type: PT Progress Note Time In * 10:45 Time Out * 11:35 PT Treatment Time-Minutes * 50 mins Type of Therapy Provided * Individual Precautions * Fall * WBAT Unit * Acute Inpatient Rehab Pain Start of Session * 0 Pain End of Session * 0 Pain Comment * Lt hip pain- 4/10 at start of session, 6/10 pain with activity Subjective * Patient is agreeable to PT treatment. Patient was seated in wheelchair prior to therapy session. Cognition * Within Normal Limits Cognition Comments * A&Ox3 Supine to Sit * Not Tested Sit to Supine * Minimum Assist Rolling * Not Tested Bed Mobility Notes * Min A of LLE to get back into bed. Sit to Stand * Minimum Assist Stand to Sit * Minimum Assist Bed to Chair * Not Tested Chair to Bed * Minimum Assist Toilet/Commode * Not Tested Transfer Training Notes * min A with sit to stands and min A with chair to bed transfers. Patient does improve to CGA with sit to stands with repetitions. Requires cues for hand placement on walker. Sit-Static * G Sit-Dynamic * G Stand-Static * F- Stand-Dynamic * F- Balance Training Note * Sitting balance assessed sitting at EOB, standing balance assessed standing at RW. Ambulation Distance * 10 Feet Ambulation Level of Assist * Minimum Assist Assistive Device Used * Rolling Walker * Gait Belt Weight BearingStatus * WBAT Left * FWB Right Able to Maintain Weight Bearing Status * Yes Gait Training Note * Patient ambulated x10 ft, x8 ft, x5 ft with RW and min A. Patient requires cues for proper hand placement with sit to stand transfers and for walker sequencing throughout ambulation. Stair Training Note * no stairs at home per pt. A. Roll Left and Right: * 88.Not Attempted B. Sit to Lying: * 03.Partial/Mod Assist C. Lying to Sitting on Side of Bed: * 88.Not Attempted D. Sit to Stand: * 03.Partial/Mod Assist E. Chair/Eaj-yi-Ddyje Transfer: * 03.Partial/Mod Assist F. Toilet Transfer: * 88.Not Attempted G. Car Transfer: * 88.Not Attempted H. Does the patient walk?: * 2. Yes I. Walk 10 Feet: * 03.Partial/Mod Assist Walk 10 Feet Comments: * see gait notes J. Walk 50' with Two Turns: * 88.Not Attempted K. Walk 150 Feet: * 88.Not Attempted L. Walking 10' on uneven surfaces: * 88.Not Attempted M. 1 Step (curb): * 88.Not Attempted N. 4 Steps (with or without railing): * 88.Not Attempted O. 12 Steps (with or without railing): * 88.Not Attempted P. Picking up Object from the Floor (from a standing): * 88.Not Attempted Q. Does the patient use a w/c (other than just transport): * 0. No Lower Extremity Exercised * Bilateral Sitting Exercises * Long Arc Quads * Marching * Hip Adduction * Toe Raises * Heel Raises Other Sitting Exercises * Patient was instructed to perform activities in pain free ROM. Number of Reps Sitting * 10-15 Reps Other Standing Exercises * sit to stands x8 reps, cues for hand placement. Therapeutic Exercises Note * Patient requires cues for proper technique with seated ther ex. PT Interventions * Gait Training * Therapeutic Excercise * Functional Training * Bed Mobility * Balance Activities * Safety/Precautions * HEP * Pt./Family Education * D/C Needs PT Progress Note * Patient demonstrates improved functional mobility this session. Patient requires consistent cues throughout for proper hand placement with transfers to ensure safety. Patient demonstrates all activity with no immediate adverse effects. Patient was supine resting in bed with bed alarm on and call gonzales in reach following PT session. Discharge Recommendations * Home w/services Safe for discharge at this time * No Patient: Ann Bloom : 1930 Age/Sex: 86/F Unit#: [id number] Room/Bed: M4143/01 User: St Raquel Coon Date: 01/17/17 15:15 Type: ST: Cognitive Linguistic Eval Reason for Referal * ARU team expressed concern for memory and organization difficulties Location of Evaluation * PM&R Unit Cognitive Communication Evaluation Components * CLQT * Assessment Scanned EMR Other Evaluation Components * [facility] Speech/Language Assessment Guide Language Testing Completed * Yes - WNL Oral Motor/Speech Skills WFL * Minimal left-sided facial droop. Speech is intelligible. Clinical Observations * Decreased Motivation * Oriented * Alert Patient Behavior * Perseveration Patient Orientation * Person * Place * Age * Birthday Pragmatics * Dec. Topic Maintenance * Verbosity * Dec. Turn Taking Memory * Dec. Immediate Memory Organization * Dec. Seq. Story Event * Dec. Visual Scanning * Decreased Planning Executive Function * Dec. Self Monitor * Dec. Flexibility Severity of Cognitive-Communication Deficit * Mild Recommendations * Sp. Tx for Cog-Comm Skill Recommendations Comment * Speech tx for left sided facial droop, memory, social interaction, perseveration, problem solving, and education on visual-spatial awareness. Supervising [employer] present, agrees w/ tx and outcomes. Miriam Ballesteros MS, [facility]-[employer]. After Evaluation/Treatment Report Provided to: * Dr. Warren and ARU team Patient: Ann Bloom : 1930 Age/Sex: 86/F Unit#: [id number] Room/Bed: M4143/01 User: St Raquel Coon SP Date: 11/9/17 15:18 Type: ST Progress Cognitive Lingusti... Exercise Education Label * Functional Problem Solvin Scheduling Memory Executive Function External Aids Orientation * Other Cognitive Linguistic Awareness of perseveration, social interaction * Measure Pt uses calendar independently for organization of appts & social events * Level of Assistance Maximal Assist Distractable * Level of Assistance Comment Verbal cues for topic-maintenance and awareness of perseveration. * Tolerance Fair * Therapeutic Exercise Yes Pt/Family Education * Therapeutic Exercise Comment Supervising [employer]ING [employer] present, agrees w/ tx and outcomes. MS Zach, CCC-[employer]ING [employer]. Allergies Coded Allergies: Diclofenac (Verified Allergy, Intermediate, RASH, 09/05/13) Bee Venom (Unverified Allergy, Unknown, SWELLING, 06/15/12) Gamal (Unverified Allergy, Unknown, MOUTH SWELLING, 06/01/09) TAPE (Verified Allergy, Unknown, SENSITIVE TO TAPE, 04/21/08) Vital Signs Vital Signs Date Time Temp Pulse Resp B/P (MAP) Pulse Ox O2 Delivery O2 Flow Rate FiO2 01/18/17 14:00 98.5 78 18 173/81 (111) 95 Room Air Laboratory Data CBC/BMP Laboratory Tests 01/18/17 06:36 Red Blood Count 3.02 L, Mean Corpuscular Volume 92.1, Mean Corpuscular Hemoglobin 30.8, Mean Corpuscular Hemoglobin Concent 33.5, Red Cell Distribution Width 13.4, Calcium Level 8.2 L, Aspartate Amino Transf (AST/SGOT) 20, Alanine Aminotransferase (ALT/SGPT) 20, Alkaline Phosphatase 51, Total Bilirubin 0.6, Total Protein 5.4 L, Albumin 2.6 L Labs 24H Laboratory Tests 2 01/18/17 06:36: Nucleated Red Blood Cells % (auto) 0.0, Prothrombin Time 23.6H, Prothromb Time International Ratio 2.02, Anion Gap 10, Glomerular Filtration Rate > 60.0, Blood Urea Nitrogen 9, Creatinine 0.50L, Sodium Level 143, Potassium Level 3.9, Chloride Level 109H, Carbon Dioxide Level 24, Calcium Level 8.2L, Aspartate Amino Transf (AST/SGOT) 20, Alanine Aminotransferase (ALT/SGPT) 20, Alkaline Phosphatase 51, Total Bilirubin 0.6, Total Protein 5.4L, Albumin 2.6L, Albumin/ Globulin Ratio 0.93L Microbiology Microbiology 01/17/17 Stool Occult Blood ([facility]) - Final, Complete Current Medications Current Medications Current Medications Acetaminophen (Tylenol Tab) 1,000 mg Q8H PO Last administered on 01/18/17 14: 41; Start 01/16/17 at 14:00; Stop 02/15/17 at 13:59 Donepezil HCl (AriCEPT) 10 mg DAILY PO Last administered on 01/18/17 08:38; Start 01/17/17 at 09:00; Stop 02/16/17 at 08:59 Fluticasone Propionate (Flonase 0.05% Nasal [place]) 2 spray DAILY NA Last administered on 01/18/17 08:39; Start 01/17/17 at 09:00; Stop 02/16/17 at 08:59 Gabapentin (Neurontin) 100 mg BID@0800,1600 PO Last administered on 01/18/17 08:38; Start 01/16/17 at 16:00; Stop 02/15/17 at 15:59 Gabapentin (Neurontin) 600 mg QHS PO Last administered on 01/17/17 20:54; Start 01/16/17 at 21:00; Stop 02/15/17 at 20:59 Levothyroxine Sodium (Synthroid) 25 mcg DAILY@06 PO Last administered on 06:00; Start 01/17/17 at 06:00; Stop 02/16/17 at 05:59 Loratadine (Claritin) 10 mg DAILY PO Last administered on 01/18/17 08:38; Start 01/17/17 at 09:00; Stop 02/16/17 at 08:59 Memantine (Namenda) 5 mg BID PO Last administered on 01/18/17 08:38; Start at 21:00; Stop 02/15/17 at 20:59 Paroxetine HCl (PAXil) 10 mg DAILY PO Last administered on 01/18/17 08:38; Start 01/17/17 at 09:00; Stop 02/16/17 at 08:59 Ropinirole HCl (Requip) 1 mg QHS PO Last administered on 01/17/17 20:54; Start 01/16/17 at 21:00; Stop 02/15/17 at 20:59 Senna (Senokot) 1 tab BID PO Last administered on 01/18/17 14:56; Start at 21:00; Stop 02/15/17 at 20:59 Tramadol HCl (Ultram) 50 mg Q6HP PRN PO MODERATE PAIN (PS 6-10) Last administered on 01/18/17 11:40; Start 01/16/17 at 12:00; Stop 01/23/17 at 11: 59 XIOMARA WARREN MD Jan 18, 2017 16:12
[2017-01-18] MEDS ORDERED: WARFARIN SOD 1 MG TAB PO ONE (17:00)
[2017-01-18 20:00] VITALS: BP 151/69
[2017-01-18] MEDS: GABAPENTIN 300 MG CAP PO SCH (21:11)
[2017-01-18] MEDS: rOPINIRole 1MG TAB PO SCH (21:12)
[2017-01-18] MEDS: TAMSULOSIN 0.4 MG CAP PO SCH (21:12)
[2017-01-19] MEDS: traMADol 50 MG TAB PO PRN ×2 (05:36→20:05)
[2017-01-19] MEDS: LEVOTHYROXINE 25MCG TABLET (0.025MG) PO SCH (05:36)
[2017-01-19] MEDS: ACETAMINOPHEN 500 MG TAB PO SCH ×3 (05:37→21:50)
[2017-01-19 06:48] LABS: MEAN CORPUSCULAR HEMOGLOBIN 30.3 pg (27.0-33.0); MEAN CORPUSCULAR HGB CONC 32.9 g/dl (32.0-36.5); MEAN CORPUSCULAR VOLUME 92.1 fl (80.0-96.0); PLATELET COUNT, AUTOMATED 406 10^3/uL (150-450); RED CELL DISTRIBUTION WIDTH 13.4 % (11.5-14.5); WHITE BLOOD COUNT 10.2 10^3/uL (4.0-10.0)
[2017-01-19 06:59] LABS: INR 1.8
[2017-01-19 07:18] LABS: ALBUMIN 2.6 GM/DL (3.2-5.2); ALBUMIN/GLOBULIN RATIO 0.79 (1.00-1.93); ALKALINE PHOSPHATASE 57 U/L (45-117); ALT/SGPT 22 U/L (12-78); ANION GAP 7 MEQ/L (8-16); AST/SGOT 23 U/L (7-37); BILIRUBIN,TOTAL 0.7 MG/DL (0.2-1.0); BLOOD UREA NITROGEN 10 MG/DL (7-18); CALCIUM LEVEL 8.3 MG/DL (8.8-10.2); CARBON DIOXIDE LEVEL 26 MEQ/L (21-32); CHLORIDE LEVEL 107 MEQ/L (98-107); CREATININE FOR GFR 0.59 MG/DL (0.55-1.02); GLOMERULAR FILTRATION RATE > 60.0 (>32); GLUCOSE, FASTING 102 MG/DL (83-110); MAGNESIUM LEVEL 1.9 MG/DL (1.8-2.4); POTASSIUM SERUM 3.5 MEQ/L (3.5-5.1); SODIUM LEVEL 140 MEQ/L (136-145); TOTAL PROTEIN 5.9 GM/DL (6.4-8.2)
[2017-01-19] MEDS: PARoxetine 10MG TABLET PO SCH (08:40)
[2017-01-19] MEDS: GABAPENTIN 100 MG CAP PO SCH ×2 (08:40→17:49)
[2017-01-19] MEDS: DONEPEZIL 5 MG TAB PO SCH (08:41)
[2017-01-19] MEDS: LORATADINE 10 MG TAB PO SCH (08:41)
[2017-01-19] MEDS: MEMANTINE 5MG TABLET (NAMENDA) PO SCH ×2 (08:41→20:05)
[2017-01-19] MEDS: SENNA 8.6 MG TAB (SENOKOT) PO SCH ×2 (08:41→20:05)
[2017-01-19] MEDS: FLUTICASONE PROP 0.05% NASAL SPRAY 16 GM (FLONASE) SCH (08:42)
--- NOTE | 2017-01-19 12:19 | IPNPDOC ---
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. The patient was assessed and felt to be appropriate for a cephalomedullary nail insertion, and this was performed on 01/14/2017. She has been previously living independently at home with a multitude of medical problems. Patient with some chronic diarrhea from Aricept and Namenda, which I am starting Senna to increase bulk to absorb and slow the bowel. Patient without complaints today. ALLERGIES: See Below MEDICATIONS: Reviewed, see below. OBJECTIVE: VITAL SIGNS: Please see below. PHYSICAL EXAMINATION: GENERAL: Short well-nourished alert and oriented to person, place, general time and situation, elderly white female in very mild musculoskeletal distress favoring left hip. HEENT: Normocephalic/atraumatic and glasses for visual correction. CARDIOVASCULAR: Regular rate and rhythm with normal S1-S2. 2/4 bilateral radial pulses. LUNGS: All case clear auscultation. ABDOMEN: Normal bowel sounds in all quadrants. NEUROLOGICAL: Speech is clear coherent and appropriate. Affect is pleasant cooperative. Good functional motor range and strength in bilateral uppers and right lower extremities with some guarding of the left hip area. SKIN: Left hip incisions covered with foam dressing no significant drainage, heat, erythema and normal localized tenderness. LABORATORY DATA: Reviewed. Please see below. MICROBIOLOGY: Please see below. IMAGING: No new imaging studies. DVT prophylaxis ordered?: Coumadin, sequential compression stockings and LUCÍA hose. INR is 1.80 today and orthopedics as ordered 2.5 mg of Coumadin for 5 PM tonight. ASSESSMENT AND PLAN: 1. Left total hip fracture with closed reduction and cephalo-medullary nail fixation: Patient appears to be having reasonable pain control and is starting in physical and occupational therapy to work on ADLs, strength, endurance, balance and mobility. Anticipated length of stay is to 01/29/17. 2. OBS: Speech therapy starting evaluation today. Patient seems to be showing better motivation and focus in the morning versus last night. Patient continues on Aricept and Namenda. We will try and work with patient to structure and organize memory and cognition to allow her the best learning experience in therapies. CONCRETE LAYER notes tendency to perseverate on certain topics. Senna 17.2 BID now to help with stool formation. 3. Anemia: H&H is 9.6 & 29.2% today on 01/19/17. We will continue to follow this along with blood pressures/heart rate. 4. Hypoalbuminemia: Currently had 2.6 for albumin today on 01/19/17. We will continue to follow this and try and improve nutrition to aid healing. 5. Urinary Retention: Patient with some large PVR's and trouble clearing them. I have added Flomax 0.4mg QHS to her care regimen. Still some incontinence, I will order sit to void. TIME SPENT: Chart Review, examination and documentation required greater than 25 minutes. Allergies Coded Allergies: Diclofenac (Verified Allergy, Intermediate, RASH, 09/05/13) Bee Venom (Unverified Allergy, Unknown, SWELLING, 06/15/12) Gamal (Unverified Allergy, Unknown, MOUTH SWELLING, 06/01/09) TAPE (Verified Allergy, Unknown, SENSITIVE TO TAPE, 04/21/08) Vital Signs Vital Signs Date Time Temp Pulse Resp B/P (MAP) Pulse Ox O2 Delivery O2 Flow Rate FiO2 01/19/17 06:06 16 Room Air 01/19/17 06:00 98.0 78 96 01/18/17 20:00 151/69 (96) Laboratory Data CBC/BMP Laboratory Tests 01/19/17 06:34 Calcium Level 8.3 L, Aspartate Amino Transf (AST/SGOT) 23, Alanine Aminotransferase (ALT/SGPT) 22, Alkaline Phosphatase 57, Total Bilirubin 0.7, Total Protein 5.9 L, Albumin 2.6 L 01/19/17 06:35 Red Blood Count 3.17 L, Mean Corpuscular Volume 92.1, Mean Corpuscular Hemoglobin 30.3, Mean Corpuscular Hemoglobin Concent 32.9, Red Cell Distribution Width 13.4 Labs 24H Laboratory Tests 2 01/19/17 06:34: Prothrombin Time 21.4H, Prothromb Time International Ratio 1.80, Anion Gap 7L, Glomerular Filtration Rate > 60.0, Blood Urea Nitrogen 10, Creatinine 0.59, Sodium Level 140, Potassium Level 3.5, Chloride Level 107, Carbon Dioxide Level 26, Calcium Level 8.3L, Aspartate Amino Transf (AST/SGOT) 23, Alanine Aminotransferase (ALT/SGPT) 22, Alkaline Phosphatase 57, Total Bilirubin 0.7, Total Protein 5.9L, Albumin 2.6L, Magnesium Level 1.9, Albumin/Globulin Ratio 0.79L 01/19/17 06:35: Nucleated Red Blood Cells % (auto) 0.0 Microbiology Microbiology 01/18/17 Gastrointestinal Tract Panel (PCR) - Final, Complete 01/17/17 Stool Occult Blood ([facility]) - Final, Complete Current Medications Current Medications Current Medications Acetaminophen (Tylenol Tab) 1,000 mg Q8H PO Last administered on 01/19/17 05: 37; Start 01/16/17 at 14:00; Stop 02/15/17 at 13:59 Donepezil HCl (AriCEPT) 10 mg DAILY PO Last administered on 01/19/17 08:41; Start 01/17/17 at 09:00; Stop 02/16/17 at 08:59 Fluticasone Propionate (Flonase 0.05% Nasal [place]) 2 spray DAILY NA Last administered on 01/19/17 08:42; Start 01/17/17 at 09:00; Stop 02/16/17 at 08: 59 Gabapentin (Neurontin) 100 mg BID@0800,1600 PO Last administered on 01/19/17 08:40; Start 01/16/17 at 16:00; Stop 02/15/17 at 15:59 Gabapentin (Neurontin) 600 mg QHS PO Last administered on 01/18/17 21:11; Start 01/16/17 at 21:00; Stop 02/15/17 at 20:59 Levothyroxine Sodium (Synthroid) 25 mcg DAILY@06 PO Last administered on 05:36; Start 01/17/17 at 06:00; Stop 02/16/17 at 05:59 Loratadine (Claritin) 10 mg DAILY PO Last administered on 01/19/17 08:41; Start 01/17/17 at 09:00; Stop 02/16/17 at 08:59 Memantine (Namenda) 5 mg BID PO Last administered on 01/19/17 08:41; Start 01/16/17 at 21:00; Stop 02/15/17 at 20:59 Paroxetine HCl (PAXil) 10 mg DAILY PO Last administered on 01/19/17 08:40; Start 01/17/17 at 09:00; Stop 02/16/17 at 08:59 Ropinirole HCl (Requip) 1 mg QHS PO Last administered on 01/18/17 21:12; Start 01/16/17 at 21:00; Stop 02/15/17 at 20:59 Senna (Senokot) 1 tab BID PO Last administered on 01/19/17 08:41; Start 01/16 at 21:00; Stop 01/19/17 at 08:54; Status DC Senna (Senokot) 2 tab BID PO ; Start 01/19/17 at 21:00; Stop 02/18/17 at 20:59 Tamsulosin HCl (Flomax) 0.4 mg QHS PO Last administered on 01/18/17 21:12; Start 01/18/17 at 21:00; Stop 02/17/17 at 20:59 Tramadol HCl (Ultram) 50 mg Q6HP PRN PO MODERATE PAIN (PS 6-10) Last administered on 01/19/17 05:36; Start 01/16/17 at 12:00; Stop 01/26/17 at 23: 55 XIOMARA WARREN MD Jan 19, 2017 12:19
[2017-01-19 14:00] VITALS: BP 115/71
[2017-01-19] MEDS ORDERED: WARFARIN SOD 2.5 MG TAB PO ONE (17:00)
[2017-01-19] MEDS: TAMSULOSIN 0.4 MG CAP PO SCH (20:05)
[2017-01-19] MEDS: rOPINIRole 1MG TAB PO SCH (20:05)
[2017-01-19] MEDS: GABAPENTIN 300 MG CAP PO SCH (20:05)
[2017-01-19 20:09] VITALS: BP 122/68
[2017-01-20] MEDS: traMADol 50 MG TAB PO PRN ×3 (02:00→16:09)
[2017-01-20] MEDS: LEVOTHYROXINE 25MCG TABLET (0.025MG) PO SCH (05:56)
[2017-01-20] MEDS: ACETAMINOPHEN 500 MG TAB PO SCH ×3 (05:57→21:27)
[2017-01-20 06:00] VITALS: BP 120/66
[2017-01-20 07:07] LABS: MEAN CORPUSCULAR HEMOGLOBIN 31.4 pg (27.0-33.0); MEAN CORPUSCULAR VOLUME 92.3 fl (80.0-96.0); PLATELET COUNT, AUTOMATED 424 10^3/uL (150-450); RED CELL DISTRIBUTION WIDTH 13.7 % (11.5-14.5); WHITE BLOOD COUNT 10.2 10^3/uL (4.0-10.0)
[2017-01-20 07:19] LABS: INR 1.81
[2017-01-20 07:30] LABS: ALBUMIN 2.6 GM/DL (3.2-5.2); ALBUMIN/GLOBULIN RATIO 0.87 (1.00-1.93); ALKALINE PHOSPHATASE 54 U/L (45-117); ALT/SGPT 33 U/L (12-78); ANION GAP 9 MEQ/L (8-16); AST/SGOT 36 U/L (7-37); BILIRUBIN,TOTAL 0.7 MG/DL (0.2-1.0); BLOOD UREA NITROGEN 11 MG/DL (7-18); CALCIUM LEVEL 8.4 MG/DL (8.8-10.2); CARBON DIOXIDE LEVEL 26 MEQ/L (21-32); CHLORIDE LEVEL 107 MEQ/L (98-107); CREATININE FOR GFR 0.55 MG/DL (0.55-1.02); GLOMERULAR FILTRATION RATE > 60.0 (>32); GLUCOSE, FASTING 103 MG/DL (83-110); MAGNESIUM LEVEL 1.9 MG/DL (1.8-2.4); POTASSIUM SERUM 4.2 MEQ/L (3.5-5.1); SODIUM LEVEL 142 MEQ/L (136-145); TOTAL PROTEIN 5.6 GM/DL (6.4-8.2)
[2017-01-20] MEDS: PARoxetine 10MG TABLET PO SCH (08:23)
[2017-01-20] MEDS: GABAPENTIN 100 MG CAP PO SCH ×2 (08:23→16:07)
[2017-01-20] MEDS: LORATADINE 10 MG TAB PO SCH (08:23)
[2017-01-20] MEDS: DONEPEZIL 5 MG TAB PO SCH (08:23)
[2017-01-20] MEDS: MEMANTINE 5MG TABLET (NAMENDA) PO SCH ×2 (08:24→20:07)
[2017-01-20] MEDS: SENNA 8.6 MG TAB (SENOKOT) PO SCH ×2 (08:24→20:07)
[2017-01-20] MEDS: FLUTICASONE PROP 0.05% NASAL SPRAY 16 GM (FLONASE) SCH (08:24)
[2017-01-20 14:00] VITALS: BP 140/72
[2017-01-20] MEDS ORDERED: WARFARIN SOD 2.5 MG TAB PO ONE (17:00)
[2017-01-20] MEDS: rOPINIRole 1MG TAB PO SCH (20:07)
[2017-01-20] MEDS: GABAPENTIN 300 MG CAP PO SCH (20:07)
[2017-01-20] MEDS: TAMSULOSIN 0.4 MG CAP PO SCH (20:07)
[2017-01-20 20:10] VITALS: BP 132/74
[2017-01-21 06:00] VITALS: BP 138/76
[2017-01-21] MEDS: LEVOTHYROXINE 25MCG TABLET (0.025MG) PO SCH (06:22)
[2017-01-21] MEDS: ACETAMINOPHEN 500 MG TAB PO SCH ×3 (06:22→21:55)
[2017-01-21 07:28] LABS: MEAN CORPUSCULAR HEMOGLOBIN 31.4 pg (27.0-33.0); MEAN CORPUSCULAR HGB CONC 34.3 g/dl (32.0-36.5); MEAN CORPUSCULAR VOLUME 91.4 fl (80.0-96.0); PLATELET COUNT, AUTOMATED 521 10^3/uL (150-450); WHITE BLOOD COUNT 9.7 10^3/uL (4.0-10.0)
[2017-01-21 07:52] LABS: INR 1.75
[2017-01-21 07:56] LABS: ALBUMIN 2.8 GM/DL (3.2-5.2); ALBUMIN/GLOBULIN RATIO 0.82 (1.00-1.93); ALKALINE PHOSPHATASE 62 U/L (45-117); ALT/SGPT 46 U/L (12-78); ANION GAP 8 MEQ/L (8-16); AST/SGOT 49 U/L (7-37); BILIRUBIN,TOTAL 0.8 MG/DL (0.2-1.0); BLOOD UREA NITROGEN 11 MG/DL (7-18); CALCIUM LEVEL 8.5 MG/DL (8.8-10.2); CARBON DIOXIDE LEVEL 26 MEQ/L (21-32); CHLORIDE LEVEL 107 MEQ/L (98-107); CREATININE FOR GFR 0.63 MG/DL (0.55-1.02); GLOMERULAR FILTRATION RATE > 60.0 (>32); GLUCOSE, FASTING 112 MG/DL (83-110); MAGNESIUM LEVEL 1.9 MG/DL (1.8-2.4); POTASSIUM SERUM 3.6 MEQ/L (3.5-5.1); SODIUM LEVEL 141 MEQ/L (136-145); TOTAL PROTEIN 6.2 GM/DL (6.4-8.2)
[2017-01-21] MEDS: MEMANTINE 5MG TABLET (NAMENDA) PO SCH ×2 (08:22→20:49)
[2017-01-21] MEDS: PARoxetine 10MG TABLET PO SCH (08:22)
[2017-01-21] MEDS: LORATADINE 10 MG TAB PO SCH (08:23)
[2017-01-21] MEDS: SENNA 8.6 MG TAB (SENOKOT) PO SCH ×2 (08:23→20:49)
[2017-01-21] MEDS: GABAPENTIN 100 MG CAP PO SCH ×2 (08:23→14:43)
[2017-01-21] MEDS: DONEPEZIL 5 MG TAB PO SCH (08:23)
[2017-01-21] MEDS: traMADol 50 MG TAB PO PRN ×3 (08:24→20:50)
[2017-01-21] MEDS: FLUTICASONE PROP 0.05% NASAL SPRAY 16 GM (FLONASE) SCH (09:00)
[2017-01-21 14:00] VITALS: BP 133/68
[2017-01-21] MEDS ORDERED: WARFARIN SOD 4 MG TAB PO ONE (17:00)
[2017-01-21] MEDS: rOPINIRole 1MG TAB PO SCH (20:49)
[2017-01-21] MEDS: GABAPENTIN 300 MG CAP PO SCH (20:49)
[2017-01-21] MEDS: TAMSULOSIN 0.4 MG CAP PO SCH (20:49)
[2017-01-21 20:52] VITALS: BP 133/67
[2017-01-22] MEDS: traMADol 50 MG TAB PO PRN ×4 (02:25→21:27)
[2017-01-22 04:55] VITALS: BP 156/76
[2017-01-22] MEDS: LEVOTHYROXINE 25MCG TABLET (0.025MG) PO SCH (04:57)
[2017-01-22] MEDS: ACETAMINOPHEN 500 MG TAB PO SCH ×3 (04:57→21:26)
[2017-01-22 06:00] VITALS: BP 156/76
[2017-01-22 07:31] LABS: MEAN CORPUSCULAR HGB CONC 32.9 g/dl (32.0-36.5); MEAN CORPUSCULAR VOLUME 94.4 fl (80.0-96.0); PLATELET COUNT, AUTOMATED 541 10^3/uL (150-450); RED CELL DISTRIBUTION WIDTH 14.2 % (11.5-14.5); WHITE BLOOD COUNT 8.9 10^3/uL (4.0-10.0)
[2017-01-22 07:54] LABS: INR 1.89
[2017-01-22 07:55] LABS: ALBUMIN 2.7 GM/DL (3.2-5.2); ALKALINE PHOSPHATASE 51 U/L (45-117); ALT/SGPT 43 U/L (12-78); ANION GAP 7 MEQ/L (8-16); AST/SGOT 43 U/L (7-37); BILIRUBIN,TOTAL 0.7 MG/DL (0.2-1.0); BLOOD UREA NITROGEN 12 MG/DL (7-18); CALCIUM LEVEL 8.3 MG/DL (8.8-10.2); CARBON DIOXIDE LEVEL 27 MEQ/L (21-32); CHLORIDE LEVEL 105 MEQ/L (98-107); CREATININE FOR GFR 0.61 MG/DL (0.55-1.02); GLOMERULAR FILTRATION RATE > 60.0 (>32); GLUCOSE, FASTING 105 MG/DL (83-110); MAGNESIUM LEVEL 1.9 MG/DL (1.8-2.4); POTASSIUM SERUM 3.8 MEQ/L (3.5-5.1); SODIUM LEVEL 139 MEQ/L (136-145); TOTAL PROTEIN 5.7 GM/DL (6.4-8.2)
[2017-01-22] MEDS: GABAPENTIN 100 MG CAP PO SCH ×2 (08:12→15:54)
[2017-01-22] MEDS: LORATADINE 10 MG TAB PO SCH (08:13)
[2017-01-22] MEDS: MEMANTINE 5MG TABLET (NAMENDA) PO SCH ×2 (08:13→21:26)
[2017-01-22] MEDS: DONEPEZIL 5 MG TAB PO SCH (08:13)
[2017-01-22] MEDS: PARoxetine 10MG TABLET PO SCH (08:13)
[2017-01-22] MEDS: SENNA 8.6 MG TAB (SENOKOT) PO SCH ×3 (08:14→21:00)
[2017-01-22] MEDS: FLUTICASONE PROP 0.05% NASAL SPRAY 16 GM (FLONASE) SCH (08:14)
--- NOTE | 2017-01-22 11:29 | IPNPDOC ---
Date Seen The patient was seen on 01/22/17. Progress Note HPI: This is an 86-year-old female who was in her usual state of health until the morning of admission and was out in the grocery store where she extended her arm upwards to try and reach for a product when she lost her balance and fell on her left side. She was then brought to the emergency room. She was found to have a left intertrochanteric fracture of the neck of femur. Orthopedic service was called and patient was taken to the operating room (OR) 01/14/17 for Lt hip ORIF/nailing. Transferred to ARU, Dr Tarango 01/16/18. Pt states she continues to have Left hip pain especially after therapy. Pt with no other concerns at this time. Denies any fevers, chills, weakness, fatigue, Headache, Chest Pain, Shortness of breath, cough, palpitations, abdominal pain, N/V/D or changes in bowel or bladder habits. PAST MEDICAL HISTORY: 1. Hypertension. 2. Hyperlipidemia. 3. Spinal stenosis. 4. Chronic back pain. 5. Bilateral lower extremity weakness secondary to spinal stenosis. 6. Osteoporosis. 7. Osteoarthritis. 8. Hypothyroidism. 9. Dementia. 10. Overactive bladder and urge incontinence. PAST SURGICAL HISTORY: 1. L4-L5 fusion. 2. Colonoscopy. PE: GEN: 86yoF, appears stated age. Well-nourished, well developed. No acute distress. Alert and oriented x 3. Pleasant, interactive. HEENT: Normocephalic, atraumatic. No facial asymmetry. Moist mucous membranes. Dentition fair. Pharynx pink and moist. CHEST: Regular rate and rhythm, +S1, +S2 LUNGS: Clear to auscultation bilaterally. No wheezes, rales, or rhonchi.Patient is speaking in full sentences. No accessory muscle use. ABD: Round, soft, non-tender, non-distended. +Bowel sounds throughout. No rebound or guarding. No costovertebral angle tenderness. EXT: Pulses 2+ bilaterally dorsalis pedis and radial. No lower extremity edema appreciated. SKIN: [place], dry, warm. Capillary refill <2sec. No rashes. NEURO: Alert and oriented x 3. Cranial nerves III-XII are intact. No focal deficits appreciated. 01/17/17 OCCULT BLOOD Final NEGATIVE 01/18/17 GASTROINTESTINAL (GI) PANEL Final NEGATIVE by MULTIPLEXED NUCLEIC ACID PCR CXR 01/14/17 1. COPD with some pulmonary artery hypertension without infiltrate, gross effusion, atelectasis or mass. 2. No gross cardiomegaly or edema. A&P: This is an 86-year-old female who was in her usual state of health until the morning of admission and was out in the grocery store where she extended her arm upwards to try and reach for a product when she lost her balance and fell on her left side. She was then brought to the emergency room. She was found to have a left intertrochanteric fracture of the neck of femur. Orthopedic service was called and patient was taken to the operating room (OR) 01/14/17 for Lt hip nailing/ORIF. Transferred to ARU, Dr Tarango 01/16/18. 1. S/P Mechanical fall/lt hip fracture S/P nailing as per Orthopedics. Mgmt as per Orthopedics. ARU as per Dr Tarango. PT/OT as per AKANKSHA/Dr Tarango. ST as per KENNEDYU/Dr Tarango. Pain control as per Dr Tarango/AKANKSHA. Bowel care as per KENNEDYU/Dr Tarango. DVT prophylaxis. Coumadin as per Orthopedics. 2. Hypothyroid. Cont supplement. 3. Dementia. Cont Aricept/Namenda. 4. Anxiety/depression. Paxil. 5. Allergic rhinitis. Flonase/Claritin. 6. Chronic Back pain. Continue gabapentin. 7. Post operative anemia. 9.4 today Iron studies, B12, folate. stool OB neg. Monitor. 8. Abnormal TSH. FT4 WNL 01/16/17. 9. Leukocytosis. Resolved. Pt is afebrile, Tmax 99.0 CXR 01/14/17 no infiltrate. UA 01/17/17 neg. GI panel 01/18 neg. asymptomatic. Monitor CBC. I/S. VS, I&O, 24H, Fishbone Vital Signs/I&O Vital Signs Date Time Temp Pulse Resp B/P (MAP) Pulse Ox O2 Delivery O2 Flow Rate FiO2 01/22/17 09:39 Room Air 01/22/17 08:43 16 01/22/17 06:00 97.5 83 156/76 (102) 94 I&O- Last 24 Hours up to 6 AM 01/23/17 06:00 Intake Total 360 ml Output Total 250 ml Balance 110 ml Laboratory Data 24H LABS Laboratory Tests 2 01/22/17 06:22: Nucleated Red Blood Cells % (auto) 0.0, Prothrombin Time 22.3H, Prothromb Time International Ratio 1.89, Anion Gap 7L, Glomerular Filtration Rate > 60.0, Blood Urea Nitrogen 12, Creatinine 0.61, Sodium Level 139, Potassium Level 3.8, Chloride Level 105, Carbon Dioxide Level 27, Calcium Level 8.3L, Aspartate Amino Transf (AST/SGOT) 43H, Alanine Aminotransferase (ALT/SGPT) 43, Alkaline Phosphatase 51, Total Bilirubin 0.7, Total Protein 5.7L, Albumin 2.7L, Magnesium Level 1.9, Albumin/Globulin Ratio 0.90L CBC/BMP Laboratory Tests 01/22/17 06:22 Red Blood Count 3.03 L, Mean Corpuscular Volume 94.4, Mean Corpuscular Hemoglobin 31.0, Mean Corpuscular Hemoglobin Concent 32.9, Red Cell Distribution Width 14.2, Calcium Level 8.3 L, Aspartate Amino Transf (AST/SGOT) 43 H, Alanine Aminotransferase (ALT/SGPT) 43, Alkaline Phosphatase 51, Total Bilirubin 0.7, Total Protein 5.7 L, Albumin 2.7 L Microbiology Microbiology 01/18/17 Gastrointestinal Tract Panel (PCR) - Final, Complete 01/17/17 Stool Occult Blood ([facility]) - Final, Complete Inga Paulino Jan 22, 2017 11:29
[2017-01-22] MEDS: EYE OU SCH ×2 (12:21→21:27)
[2017-01-22] MEDS: RESTASIS 0.05% OU SCH ×2 (12:21→21:27)
[2017-01-22 14:00] VITALS: BP 158/77
[2017-01-22] MEDS: ANALGESIC BALM CRM 120 GM TOP PRN (15:56)
--- NOTE | 2017-01-22 16:35 | IPNPDOC ---
PM&R Progress Note Commercial Subcontractor Progress Note DATE OF SERVICE: 01/22/17 DATE OF ADMISSION: Jan 16, 2017 at 12:10 INPATIENT REHABILITATION ADMISSION DAY: #7 SUBJECTIVE: The patient is a right-handed elderly white female who on 2016 was at the grocery store and ended up falling onto her left side with marked pain in her left hip and was found to have sustained a left hip fracture when brought to the emergency room at [facility]. The patient was assessed and felt to be appropriate for a cephalomedullary nail insertion, and this was performed on 01/14/2017. She has been previously living independently at home with a multitude of medical problems. Patient with some chronic diarrhea from Aricept and Namenda, which I am starting Senna to increase bulk to absorb and slow the bowel. Patient without complaints today except achy joints in neck, shoulders and knees. ALLERGIES: See Below MEDICATIONS: Reviewed, see below. OBJECTIVE: VITAL SIGNS: Please see below. PHYSICAL EXAMINATION: GENERAL: Short well-nourished alert and oriented to person, place, general time and situation, elderly white female in very mild musculoskeletal distress favoring left hip. HEENT: Normocephalic/atraumatic and glasses for visual correction. CARDIOVASCULAR: Regular rate and rhythm with normal S1-S2. 2/4 bilateral radial pulses. LUNGS: All case clear auscultation. ABDOMEN: Normal bowel sounds in all quadrants. NEUROLOGICAL: Speech is clear coherent and appropriate. Affect is pleasant cooperative. Good functional motor range and strength in bilateral uppers and right lower extremities with some guarding of the left hip area. SKIN: Left hip incisions covered with foam dressing no significant drainage, heat, erythema and normal localized tenderness. LABORATORY DATA: Reviewed. Please see below. MICROBIOLOGY: Please see below. IMAGING: No new imaging studies. DVT prophylaxis ordered?: Coumadin, sequential compression stockings and LUCÍA hose. INR is 1.89 today and orthopedics as ordered 4 mg of Coumadin for 5 PM tonight. ASSESSMENT AND PLAN: 1. Left total hip fracture with closed reduction and cephalo-medullary nail fixation: Patient appears to be having reasonable pain control and is starting in physical and occupational therapy to work on ADLs, strength, endurance, balance and mobility. Anticipated length of stay is to 01/29/17. However, patient with some inconsistency of effort and performance, so we will consider increasing stay as she continues to progress as noted in Rehab. Team Rounds today. Please see attached therapy notes below. 2. OBS: Speech therapy starting evaluation today. Patient seems to be showing better motivation and focus in the morning versus last night. Patient continues on Aricept and Namenda. We will try and work with patient to structure and organize memory and cognition to allow her the best learning experience in therapies. C PROGRAMMER notes tendency to perseverate on certain topics. Senna 17.2 BID now to help with stool formation. 3. Anemia: H&H is 9.4 & 28.6% today on 01/22/17. We will continue to follow this along with blood pressures/heart rate. 4. Hypoalbuminemia: Currently had 2.7 for albumin today on 01/22/17. This is slightly improved. We will continue to follow this and try and improve nutrition to aid healing. 5. Urinary Retention: Patient with some large PVR's and trouble clearing them. I have added Flomax 0.4mg QHS to her care regimen. Still some incontinence, I will order sit to void. TIME SPENT: Chart Review, examination and documentation required greater than 25 minutes. Patient: Ann Bloom : 1930 Age/Sex: 86/F Unit#: [id number] Room/Bed: [place] [address] User: Charissa Valente OT [facility] Date: 01/22/17 14:30 Type: OT Progress Time In * 14:00 Time Out * 14:30 OT Treatment Time-Minutes * 30 mins Type of Therapy Provided * Individual Precautions * Fall * WBAT Unit * Acute Inpatient Rehab Pain Start of Session * 8 Pain End of Session * 8 Pain Comment * Pt with 8/10 L hip and knee pain. Subjective * Pt received for session seated on commode, agreeable to OT session. Cognition * Impaired Cognition Comments * Pt continues to demonstrate signs of forgetfulness and confusion; i.e., pt had completed toilet hygiene and then sat back down onto commode to adjust pants that had fallen to feet and asked this marketing underwriter if she had wiped yet, forgetting that she had just completed wiping. Sit to Supine * Minimum Assist Bed Mobility Notes * Pt perf sit>supine with min A to lift LLE onto bed with HOB flat using bed rail. Sit to Stand * Contact Guard Assist Stand to Sit * Contact Guard Assist Toilet/Commode * Contact Guard Assist Functional Transfer Notes: * Pt performed spt commode>wc and wc>bed with RW requiring cuing for safe hand placement and fully backing up to seat with RW. CGA provided for safety but no LOB observed. Dressing-Lower Body * Contact Guard Assist Toileting * Contact Guard Assist ADL Training Note * Pt received for session having doffed brief and pants due to incontinence. Pt donned clean brief and pants while seated on commode using agency owner with min-mod VCs. Pt donned pants to waist using BUEs in standing with CGA for safety. Pt performed toilet hygiene s/p bm with CGA in standing using unilateral support on RW; however, pt with some forgetfulness as noted above. C. Toileting Hygiene (not transfers): * 04.Sup/Touch Assist Toileting Hygiene Comments: * See ADL note. G. Lower Body Dressing (includes briefs and knee braces): * 04.Sup/Touch Assist Sit-Static * G Sit-Dynamic * G- Stand-Static * G Stand-Dynamic * G- Balance Training Note * Sitting observed on commode and at EOB, standing observed with and without RW during performance of ADLs. OT Intervention Note * Pt also participated with bicep curl therex for BUEs using 2# x 2 sets 10 reps as well as active R shoulder ROM and LUE chest press with 1# x 1 set 10 reps before requesting return to bed. Pt with good carryover using agency owner from this morning and continues to demonstrate significant improvement with LB dressing compared to yesterday's session. Pt continues to require cuing for safety during functional transfers. Pt left supine in bed at end of session with call gonzales in reach and all needs met. OT Goal Note * Continue with OT plan of care. Discharge Recommendations * Home w/services Safe for discharge at this time * No Patient: Ann Bloom : 1930 Age/Sex: 86/F Unit#: [id number] Room/Bed: M4143/01 User: Maria Dolores Millard PT PT Date: 01/22/17 15:06 Type: PT Progress Note Time In * 14:50 Time Out * 15:20 PT Treatment Time-Minutes * 30 mins Type of Therapy Provided * Individual Precautions * Fall * WBAT Unit * Acute Inpatient Rehab Pain Start of Session * 6 Pain End of Session * 6 Pain Comment * Pt with 6-7/10 L hip and knee pain. Subjective * Pt supine in bed; states she has had diarrhea this afternoon and not feeling well; agreeable to supine ther ex Cognition * Impaired Cognition Comments * Pt continues to demonstrate signs of forgetfulness and confusion Bed Mobility Notes * pt in bed troughout session Transfer Training Notes * pt in bed throughout session Wheelchair Mobility Level of Assist * Not Tested Stair Training Note * no stairs at home per pt. Lower Extremity Exercised * Bilateral Supine Exercises * Ankle Pumps * Quad Sets * Glut Sets * Heel Slides * Hip Abductions * Straight Leg Raises Therapeutic Exercises Note * no adverse effects following supine ther ex; VC provided throughout for technique and pace of exercises PT Interventions * Gait Training * Functional Training * Balance Activities * Safety/Precautions * Pt./Family Education PT Progress Note * Pt not feeling well during PM session and declining OOB activity. Pt performed supine ther ex with VCs for accuracy and speed as she tends to quickly perform ex with decreased ROM. Pt left supine in bed with call gonzales in reach. PT Goal Note * progress ambulation distance Discharge Recommendations * Home w/services Safe for discharge at this time * No Allergies Coded Allergies: Diclofenac (Verified Allergy, Intermediate, RASH, 09/05/13) Bee Venom (Unverified Allergy, Unknown, SWELLING, 06/15/12) [place] (Unverified Allergy, Unknown, MOUTH SWELLING, 06/01/09) TAPE (Verified Allergy, Unknown, SENSITIVE TO TAPE, 04/21/08) Vital Signs Vital Signs Date Time Temp Pulse Resp B/P (MAP) Pulse Ox O2 Delivery O2 Flow Rate FiO2 01/22/17 15:55 16 Room Air 01/22/17 06:00 97.5 83 156/76 (102) 94 Laboratory Data CBC/BMP Laboratory Tests 01/22/17 06:22 Red Blood Count 3.03 L, Mean Corpuscular Volume 94.4, Mean Corpuscular Hemoglobin 31.0, Mean Corpuscular Hemoglobin Concent 32.9, Red Cell Distribution Width 14.2, Calcium Level 8.3 L, Aspartate Amino Transf (AST/SGOT) 43 H, Alanine Aminotransferase (ALT/SGPT) 43, Alkaline Phosphatase 51, Total Bilirubin 0.7, Total Protein 5.7 L, Albumin 2.7 L Labs 24H Laboratory Tests 2 01/22/17 06:22: Nucleated Red Blood Cells % (auto) 0.0, Prothrombin Time 22.3H, Prothromb Time International Ratio 1.89, Anion Gap 7L, Glomerular Filtration Rate > 60.0, Blood Urea Nitrogen 12, Creatinine 0.61, Sodium Level 139, Potassium Level 3.8, Chloride Level 105, Carbon Dioxide Level 27, Calcium Level 8.3L, Aspartate Amino Transf (AST/SGOT) 43H, Alanine Aminotransferase (ALT/SGPT) 43, Alkaline Phosphatase 51, Total Bilirubin 0.7, Total Protein 5.7L, Albumin 2.7L, Magnesium Level 1.9, Albumin/Globulin Ratio 0.90L Microbiology Microbiology 01/18/17 Gastrointestinal Tract Panel (PCR) - Final, Complete 01/17/17 Stool Occult Blood (FRANKLIN) - Final, Complete Current Medications Current Medications Current Medications Acetaminophen (Tylenol Tab) 1,000 mg Q8H PO Last administered on 01/22/17 15: 55; Start 01/16/17 at 14:00; Stop 02/15/17 at 13:59 Donepezil HCl (AriCEPT) 10 mg DAILY PO Last administered on 01/22/17 08:13; Start 01/17/17 at 09:00; Stop 02/16/17 at 08:59 Fluticasone Propionate (Flonase 0.05% Nasal [place]) 2 spray DAILY NA Last administered on 01/22/17 08:14; Start 01/17/17 at 09:00; Stop 02/16/17 at 08: 59 Gabapentin (Neurontin) 100 mg BID@0800,1600 PO Last administered on 01/22/17 15:54; Start 01/16/17 at 16:00; Stop 02/15/17 at 15:59 Gabapentin (Neurontin) 600 mg QHS PO Last administered on 01/21/17 20:49; Start 01/16/17 at 21:00; Stop 02/15/17 at 20:59 Levothyroxine Sodium (Synthroid) 25 mcg DAILY@06 PO Last administered on 04:57; Start 01/17/17 at 06:00; Stop 02/16/17 at 05:59 Loratadine (Claritin) 10 mg DAILY PO Last administered on 01/22/17 08:13; Start 01/17/17 at 09:00; Stop 02/16/17 at 08:59 Memantine (Namenda) 5 mg BID PO Last administered on 01/22/17 08:13; Start 01/16/17 at 21:00; Stop 02/15/17 at 20:59 Menthol/Methyl Salicylate (Bengay Cream) to neck, shoulders, knees TID PRN TOP PAIN Last administered on 01/22/17 15:56; Start 01/22/17 at 15:30; Stop at 15:29 Miscellaneous (Unresolved Patient Own Med Order) SEE LABEL COMMENTS UNRESOLVED XX ; Start 01/22/17 at 00:01; Stop 01/22/17 at 11:07; Status DC Paroxetine HCl (PAXil) 10 mg DAILY PO Last administered on 01/22/17 08:13; Start 01/17/17 at 09:00; Stop 02/16/17 at 08:59 Patient Own Medication (Patient'S Own Med) 1 ea BID OU Last administered on 12:21; Start 01/22/17 at 09:00; Stop 02/21/17 at 08:59 Ropinirole HCl (Requip) 1 mg QHS PO Last administered on 01/21/17 20:49; Start 01/16/17 at 21:00; Stop 02/15/17 at 20:59 Senna (Senokot) 1 tab BID PO Last administered on 01/19/17 08:41; Start 01/16 at 21:00; Stop 01/19/17 at 08:54; Status DC Senna (Senokot) 2 tab BID PO Last administered on 01/22/17 09:33; Start 12/26 at 21:00; Stop 02/18/17 at 20:59 Tamsulosin HCl (Flomax) 0.4 mg QHS PO Last administered on 01/21/17 20:49; Start 01/18/17 at 21:00; Stop 02/17/17 at 20:59 Tramadol HCl (Ultram) 50 mg Q6HP PRN PO MODERATE PAIN (PS 6-10) Last administered on 01/22/17 15:55; Start 01/16/17 at 12:00; Stop 01/26/17 at 23: 55 Warfarin Sodium (Coumadin) 4 mg DAILY@17 PO ; Start 01/22/17 at 17:00; Stop at 16:59 XIOMARA WARREN MD Jan 22, 2017 16:35
[2017-01-22] MEDS: WARFARIN SOD 4 MG TAB PO SCH (17:25)
[2017-01-22 20:12] VITALS: BP 154/69
[2017-01-22] MEDS: TAMSULOSIN 0.4 MG CAP PO SCH (21:25)
[2017-01-22] MEDS: rOPINIRole 1MG TAB PO SCH (21:25)
[2017-01-22] MEDS: GABAPENTIN 300 MG CAP PO SCH (21:26)
[2017-01-23] MEDS: LEVOTHYROXINE 25MCG TABLET (0.025MG) PO SCH (05:11)
[2017-01-23] MEDS: ACETAMINOPHEN 500 MG TAB PO SCH ×3 (05:11→21:08)
[2017-01-23 05:20] VITALS: BP 114/57
[2017-01-23 06:51] LABS: MEAN CORPUSCULAR HEMOGLOBIN 30.9 pg (27.0-33.0); MEAN CORPUSCULAR VOLUME 93.6 fl (80.0-96.0); PLATELET COUNT, AUTOMATED 556 10^3/uL (150-450); RED CELL DISTRIBUTION WIDTH 14.4 % (11.5-14.5)
[2017-01-23 07:14] LABS: ALBUMIN 2.6 GM/DL (3.2-5.2); ALBUMIN/GLOBULIN RATIO 0.76 (1.00-1.93); ALKALINE PHOSPHATASE 61 U/L (45-117); ALT/SGPT 40 U/L (12-78); ANION GAP 7 MEQ/L (8-16); AST/SGOT 35 U/L (7-37); BILIRUBIN,TOTAL 0.7 MG/DL (0.2-1.0); BLOOD UREA NITROGEN 10 MG/DL (7-18); CALCIUM LEVEL 8.5 MG/DL (8.8-10.2); CARBON DIOXIDE LEVEL 27 MEQ/L (21-32); CHLORIDE LEVEL 106 MEQ/L (98-107); CREATININE FOR GFR 0.51 MG/DL (0.55-1.02); GLOMERULAR FILTRATION RATE > 60.0 (>32); GLUCOSE, FASTING 101 MG/DL (83-110); MAGNESIUM LEVEL 2.2 MG/DL (1.8-2.4); POTASSIUM SERUM 3.9 MEQ/L (3.5-5.1); SODIUM LEVEL 140 MEQ/L (136-145)
[2017-01-23] MEDS: RESTASIS 0.05% OU SCH ×2 (09:00→21:13)
[2017-01-23] MEDS: SENNA 8.6 MG TAB (SENOKOT) PO SCH ×2 (09:00→21:00)
[2017-01-23] MEDS: EYE OU SCH ×2 (09:00→21:13)
[2017-01-23] MEDS: DONEPEZIL 5 MG TAB PO SCH (09:04)
[2017-01-23] MEDS: GABAPENTIN 100 MG CAP PO SCH ×2 (09:04→16:48)
[2017-01-23] MEDS: MEMANTINE 5MG TABLET (NAMENDA) PO SCH ×2 (09:05→21:06)
[2017-01-23] MEDS: FLUTICASONE PROP 0.05% NASAL SPRAY 16 GM (FLONASE) SCH (09:05)
[2017-01-23] MEDS: LORATADINE 10 MG TAB PO SCH (09:05)
[2017-01-23] MEDS: PARoxetine 10MG TABLET PO SCH (09:05)
[2017-01-23] MEDS: traMADol 50 MG TAB PO PRN ×2 (09:08→16:49)
--- NOTE | 2017-01-23 12:14 | IPNPDOC ---
PM&R Progress Note Softball Winder Progress Note DATE OF SERVICE: 01/23/17 DATE OF ADMISSION: Jan 16, 2017 at 12:10 INPATIENT REHABILITATION ADMISSION DAY: #8 SUBJECTIVE: The patient is a right-handed elderly white female who on 2016 was at the grocery store and ended up falling onto her left side with marked pain in her left hip and was found to have sustained a left hip fracture when brought to the emergency room at [facility]. The patient was assessed and felt to be appropriate for a cephalomedullary nail insertion, and this was performed on 01/14/2017. She has been previously living independently at home with a multitude of medical problems. Patient with some chronic diarrhea from Aricept and Namenda, which I am starting Senna to increase bulk to absorb and slow the bowel. Patient without complaints today except achy joints in neck, shoulders and knees. Patient is encouraged to request the arthritis rub medication from nursing if she needs it. ALLERGIES: See Below MEDICATIONS: Reviewed, see below. OBJECTIVE: VITAL SIGNS: Please see below. PHYSICAL EXAMINATION: GENERAL: Short well-nourished alert and oriented to person, place, general time and situation, elderly white female in very mild musculoskeletal distress favoring left hip. HEENT: Normocephalic/atraumatic and glasses for visual correction. CARDIOVASCULAR: Regular rate and rhythm with normal S1-S2. 2/4 bilateral radial pulses. LUNGS: All case clear auscultation. ABDOMEN: Normal bowel sounds in all quadrants. NEUROLOGICAL: Speech is clear coherent and appropriate. Affect is pleasant cooperative. Good functional motor range and strength in bilateral uppers and right lower extremities with some guarding of the left hip area. SKIN: Left hip incisions covered with foam dressing no significant drainage, heat, erythema and normal localized tenderness. LABORATORY DATA: Reviewed. Please see below. MICROBIOLOGY: Please see below. IMAGING: No new imaging studies. DVT prophylaxis ordered?: Coumadin, sequential compression stockings and LUCÍA hose. INR is 1.89 yesterday and orthopedics as ordered 4 mg of Coumadin for 5 PM tonight. I will order daily Protime/INR for the next 10 days. ASSESSMENT AND PLAN: 1. Left total hip fracture with closed reduction and cephalo-medullary nail fixation: Patient appears to be having reasonable pain control and is starting in physical and occupational therapy to work on ADLs, strength, endurance, balance and mobility. Anticipated length of stay is to 01/29/17. However, patient with some inconsistency of effort and performance, so we will consider increasing stay as she continues to participate and progress if it is at a slow rate due to the OBS. 2. OBS: Speech therapy starting evaluation today. Patient seems to be showing better motivation and focus in the morning versus last night. Patient continues on Aricept and Namenda. We will try and work with patient to structure and organize memory and cognition to allow her the best learning experience in therapies. HOOP MAKER notes tendency to perseverate on certain topics. Senna 17.2 BID now to help with stool formation. 3. Anemia: H&H is 9.6 & 29.1% today on 01/23/17. We will continue to follow this along with blood pressures/heart rate. 4. Hypoalbuminemia: Currently had 2.6 for albumin today on 01/23/17. This is slightly improved. We will continue to follow this and try and improve nutrition to aid healing. 5. Urinary Retention: Patient with some large PVR's and trouble clearing them. I have added Flomax 0.4mg QHS to her care regimen. Still some incontinence, I will order sit to void. TIME SPENT: Chart Review, examination and documentation required greater than 25 minutes. Allergies Coded Allergies: Diclofenac (Verified Allergy, Intermediate, RASH, 09/05/13) Bee Venom (Unverified Allergy, Unknown, SWELLING, 06/15/12) [place] (Unverified Allergy, Unknown, MOUTH SWELLING, 06/01/09) TAPE (Verified Allergy, Unknown, SENSITIVE TO TAPE, 04/21/08) Vital Signs Vital Signs Date Time Temp Pulse Resp B/P (MAP) Pulse Ox O2 Delivery O2 Flow Rate FiO2 01/23/17 09:08 18 Room Air 01/23/17 05:20 97.8 91 114/57 (40) 97 Laboratory Data CBC/BMP Laboratory Tests 01/23/17 06:39 Red Blood Count 3.11 L, Mean Corpuscular Volume 93.6, Mean Corpuscular Hemoglobin 30.9, Mean Corpuscular Hemoglobin Concent 33.0, Red Cell Distribution Width 14.4, Calcium Level 8.5 L, Aspartate Amino Transf (AST/SGOT) 35, Alanine Aminotransferase (ALT/SGPT) 40, Alkaline Phosphatase 61, Total Bilirubin 0.7, Total Protein 6.0 L, Albumin 2.6 L Labs 24H Laboratory Tests 2 01/23/17 06:39: Nucleated Red Blood Cells % (auto) 0.0, Anion Gap 7L, Glomerular Filtration Rate > 60.0, Blood Urea Nitrogen 10, Creatinine 0.51L, Sodium Level 140, Potassium Level 3.9, Chloride Level 106, Carbon Dioxide Level 27, Calcium Level 8.5L, Aspartate Amino Transf (AST/SGOT) 35, Alanine Aminotransferase (ALT/SGPT) 40, Alkaline Phosphatase 61, Total Bilirubin 0.7, Total Protein 6.0L, Albumin 2.6L, Magnesium Level 2.2, Albumin/Globulin Ratio 0.76L Microbiology Microbiology 01/18/17 Gastrointestinal Tract Panel (PCR) - Final, Complete 01/17/17 Stool Occult Blood (FRANKLIN) - Final, Complete Current Medications Current Medications Current Medications Acetaminophen (Tylenol Tab) 1,000 mg Q8H PO Last administered on 01/23/17 05: 11; Start 01/16/17 at 14:00; Stop 02/15/17 at 13:59 Donepezil HCl (AriCEPT) 10 mg DAILY PO Last administered on 01/23/17 09:04; Start 01/17/17 at 09:00; Stop 02/16/17 at 08:59 Fluticasone Propionate (Flonase 0.05% Nasal [place]) 2 spray DAILY NA Last administered on 01/23/17 09:05; Start 01/17/17 at 09:00; Stop 02/16/17 at 08: 59 Gabapentin (Neurontin) 100 mg BID@0800,1600 PO Last administered on 01/23/17 09:04; Start 01/16/17 at 16:00; Stop 02/15/17 at 15:59 Gabapentin (Neurontin) 600 mg QHS PO Last administered on 01/22/17 21:26; Start 01/16/17 at 21:00; Stop 02/15/17 at 20:59 Levothyroxine Sodium (Synthroid) 25 mcg DAILY@06 PO Last administered on 05:11; Start 01/17/17 at 06:00; Stop 02/16/17 at 05:59 Loratadine (Claritin) 10 mg DAILY PO Last administered on 01/23/17 09:05; Start 01/17/17 at 09:00; Stop 02/16/17 at 08:59 Memantine (Namenda) 5 mg BID PO Last administered on 01/23/17 09:05; Start 01/16/17 at 21:00; Stop 02/15/17 at 20:59 Menthol/Methyl Salicylate (Bengay Cream) to neck, shoulders, knees TID PRN TOP PAIN Last administered on 01/22/17 15:56; Start 01/22/17 at 15:30; Stop at 15:29 Miscellaneous (Unresolved Patient Own Med Order) SEE LABEL COMMENTS UNRESOLVED XX ; Start 01/22/17 at 00:01; Stop 01/22/17 at 11:07; Status DC Paroxetine HCl (PAXil) 10 mg DAILY PO Last administered on 01/23/17 09:05; Start 01/17/17 at 09:00; Stop 02/16/17 at 08:59 Patient Own Medication (Patient'S Own Med) 1 ea BID OU Last administered on 09:00; Start 01/22/17 at 09:00; Stop 02/21/17 at 08:59 Ropinirole HCl (Requip) 1 mg QHS PO Last administered on 01/22/17 21:25; Start 01/16/17 at 21:00; Stop 02/15/17 at 20:59 Senna (Senokot) 1 tab BID PO Last administered on 01/19/17 08:41; Start 01/16 at 21:00; Stop 01/19/17 at 08:54; Status DC Senna (Senokot) 2 tab BID PO Last administered on 01/22/17 09:33; Start 12/26 at 21:00; Stop 02/18/17 at 20:59 Tamsulosin HCl (Flomax) 0.4 mg QHS PO Last administered on 01/22/17 21:25; Start 01/18/17 at 21:00; Stop 02/17/17 at 20:59 Tramadol HCl (Ultram) 50 mg Q6HP PRN PO MODERATE PAIN (PS 6-10) Last administered on 01/23/17 09:08; Start 01/16/17 at 12:00; Stop 01/26/17 at 23: 55 Warfarin Sodium (Coumadin) 4 mg DAILY@17 PO Last administered on 01/22/17t 17: 25; Start 01/22/17 at 17:00; Stop 01/29/17 at 16:59 XIOMARA WARREN MD Jan 23, 2017 12:14
[2017-01-23 14:00] VITALS: BP 128/68
[2017-01-23] MEDS: WARFARIN SOD 4 MG TAB PO SCH (16:48)
[2017-01-23 20:30] VITALS: BP 115/64
[2017-01-23] MEDS: rOPINIRole 1MG TAB PO SCH (21:06)
[2017-01-23] MEDS: GABAPENTIN 300 MG CAP PO SCH (21:06)
[2017-01-23] MEDS: TAMSULOSIN 0.4 MG CAP PO SCH (21:06)
[2017-01-24] MEDS: LEVOTHYROXINE 25MCG TABLET (0.025MG) PO SCH (05:17)
[2017-01-24] MEDS: ACETAMINOPHEN 500 MG TAB PO SCH ×3 (05:18→21:09)
[2017-01-24 05:41] VITALS: BP 127/65
[2017-01-24 07:24] LABS: INR 2.19
[2017-01-24] MEDS: RESTASIS 0.05% OU SCH ×2 (08:35→21:08)
[2017-01-24] MEDS: EYE OU SCH ×2 (08:35→21:08)
[2017-01-24] MEDS: MEMANTINE 5MG TABLET (NAMENDA) PO SCH ×2 (08:36→21:09)
[2017-01-24] MEDS: SENNA 8.6 MG TAB (SENOKOT) PO SCH ×2 (08:36→21:00)
[2017-01-24] MEDS: LORATADINE 10 MG TAB PO SCH (08:36)
[2017-01-24] MEDS: GABAPENTIN 100 MG CAP PO SCH ×2 (08:36→15:30)
[2017-01-24] MEDS: PARoxetine 10MG TABLET PO SCH (08:36)
[2017-01-24] MEDS: DONEPEZIL 5 MG TAB PO SCH (08:36)
[2017-01-24] MEDS: FLUTICASONE PROP 0.05% NASAL SPRAY 16 GM (FLONASE) SCH (08:37)
[2017-01-24 14:00] VITALS: BP 140/67
--- NOTE | 2017-01-24 17:16 | IPNPDOC ---
PM&R Progress Note Gas Scrubber Operator Progress Note DATE OF SERVICE: 01/24/17 DATE OF ADMISSION: Jan 16, 2017 at 12:10 INPATIENT REHABILITATION ADMISSION DAY: #9 SUBJECTIVE: The patient is a right-handed elderly white female who on 2016 was at the grocery store and ended up falling onto her left side with marked pain in her left hip and was found to have sustained a left hip fracture when brought to the emergency room at [facility]. The patient was assessed and felt to be appropriate for a cephalomedullary nail insertion, and this was performed on 01/14/2017. She has been previously living independently at home with a multitude of medical problems. Patient with some chronic diarrhea from Aricept and Namenda, which I am starting Senna to increase bulk to absorb and slow the bowel. Patient without complaints today except achy joints in neck, shoulders and knees. Patient is encouraged to request the arthritis rub medication from nursing if she needs it. ALLERGIES: See Below MEDICATIONS: Reviewed, see below. OBJECTIVE: VITAL SIGNS: Please see below. PHYSICAL EXAMINATION: GENERAL: Short well-nourished alert and oriented to person, place, general time and situation, elderly white female in very mild musculoskeletal distress favoring left hip. HEENT: Normocephalic/atraumatic and glasses for visual correction. CARDIOVASCULAR: Regular rate and rhythm with normal S1-S2. 2/4 bilateral radial pulses. LUNGS: All case clear auscultation. ABDOMEN: Normal bowel sounds in all quadrants. NEUROLOGICAL: Speech is clear coherent and appropriate. Affect is pleasant cooperative. Good functional motor range and strength in bilateral uppers and right lower extremities with some guarding of the left hip area. SKIN: Left hip incisions covered with foam dressing no significant drainage, heat, erythema and normal localized tenderness. LABORATORY DATA: Reviewed. Please see below. MICROBIOLOGY: Please see below. IMAGING: No new imaging studies. DVT prophylaxis ordered?: Coumadin, sequential compression stockings and LUCÍA hose. INR is 2.19 today and orthopedics as ordered 4 mg of Coumadin for 5 PM tonight. ASSESSMENT AND PLAN: 1. Left total hip fracture with closed reduction and cephalo-medullary nail fixation: Patient appears to be having reasonable pain control and is starting in physical and occupational therapy to work on ADLs, strength, endurance, balance and mobility. Anticipated length of stay is to 01/29/17. However, patient with some inconsistency of effort and performance, so we will consider increasing stay as she continues to participate and progress if it is at a slow rate due to the OBS. 2. OBS: Speech therapy starting evaluation today. Patient seems to be showing better motivation and focus in the morning versus last night. Patient continues on Aricept and Namenda. We will try and work with patient to structure and organize memory and cognition to allow her the best learning experience in therapies. INTERACTIVE MARKETING STRATEGIST notes tendency to perseverate on certain topics. Senna 17.2 BID now to help with stool formation. 3. Anemia: H&H is 9.6 & 29.1% on 01/23/17. We will continue to follow this along with blood pressures/heart rate. 4. Hypoalbuminemia: Currently had 2.6 for albumin on 01/23/17. This is slightly improved. We will continue to follow this and try and improve nutrition to aid healing. 5. Urinary Retention: Patient with some large PVR's and trouble clearing them. I have added Flomax 0.4mg QHS to her care regimen. Still some incontinence, I will order sit to void. TIME SPENT: Chart Review, examination and documentation required greater than 25 minutes. Allergies Coded Allergies: Diclofenac (Verified Allergy, Intermediate, RASH, 09/05/13) Bee Venom (Unverified Allergy, Unknown, SWELLING, 06/15/12) Gamal (Unverified Allergy, Unknown, MOUTH SWELLING, 06/01/09) TAPE (Verified Allergy, Unknown, SENSITIVE TO TAPE, 04/21/08) Vital Signs Vital Signs Date Time Temp Pulse Resp B/P (MAP) Pulse Ox O2 Delivery O2 Flow Rate FiO2 01/24/17 14:00 98.7 89 16 140/67 (91) 98 Room Air Laboratory Data Labs 24H Laboratory Tests 2 01/24/17 06:53: Prothrombin Time 25.2H, Prothromb Time International Ratio 2.19 Microbiology Microbiology 01/18/17 Gastrointestinal Tract Panel (PCR) - Final, Complete 01/17/17 Stool Occult Blood (FRANKLIN) - Final, Complete Current Medications Current Medications Current Medications Acetaminophen (Tylenol Tab) 1,000 mg Q8H PO Last administered on 01/24/17t 15: 30; Start 01/16/17 at 14:00; Stop 02/15/17 at 13:59 Donepezil HCl (AriCEPT) 10 mg DAILY PO Last administered on 01/24/17 08:36; Start 01/17/17 at 09:00; Stop 02/16/17 at 08:59 Fluticasone Propionate (Flonase 0.05% Nasal [place]) 2 spray DAILY NA Last administered on 01/24/17 08:37; Start 01/17/17 at 09:00; Stop 02/16/17 at 08: 59 Gabapentin (Neurontin) 100 mg BID@0800,1600 PO Last administered on 01/24/17 15:30; Start 01/16/17 at 16:00; Stop 02/15/17 at 15:59 Gabapentin (Neurontin) 600 mg QHS PO Last administered on 01/23/17 21:06; Start 01/16/17 at 21:00; Stop 02/15/17 at 20:59 Levothyroxine Sodium (Synthroid) 25 mcg DAILY@06 PO Last administered on 05:17; Start 01/17/17 at 06:00; Stop 02/16/17 at 05:59 Loratadine (Claritin) 10 mg DAILY PO Last administered on 01/24/17 08:36; Start 01/17/17 at 09:00; Stop 02/16/17 at 08:59 Memantine (Namenda) 5 mg BID PO Last administered on 01/24/17 08:36; Start 01/16/17 at 21:00; Stop 02/15/17 at 20:59 Menthol/Methyl Salicylate (Bengay Cream) to neck, shoulders, knees TID PRN TOP PAIN Last administered on 01/22/17 15:56; Start 01/22/17 at 15:30; Stop at 15:29 Miscellaneous (Unresolved Patient Own Med Order) SEE LABEL COMMENTS UNRESOLVED XX ; Start 01/22/17 at 00:01; Stop 01/22/17 at 11:07; Status DC Paroxetine HCl (PAXil) 10 mg DAILY PO Last administered on 01/24/17 08:36; Start 01/17/17 at 09:00; Stop 02/16/17 at 08:59 Patient Own Medication (Patient'S Own Med) 1 ea BID OU Last administered on 08:35; Start 01/22/17 at 09:00; Stop 02/21/17 at 08:59 Ropinirole HCl (Requip) 1 mg QHS PO Last administered on 01/23/17 21:06; Start 01/16/17 at 21:00; Stop 02/15/17 at 20:59 Senna (Senokot) 1 tab BID PO Last administered on 01/19/17 08:41; Start 01/16 at 21:00; Stop 01/19/17 at 08:54; Status DC Senna (Senokot) 2 tab BID PO Last administered on 01/22/17 09:33; Start 12/26 at 21:00; Stop 02/18/17 at 20:59 Tamsulosin HCl (Flomax) 0.4 mg QHS PO Last administered on 01/23/17 21:06; Start 01/18/17 at 21:00; Stop 02/17/17 at 20:59 Tramadol HCl (Ultram) 50 mg Q6HP PRN PO MODERATE PAIN (PS 6-10) Last administered on 01/23/17 16:49; Start 01/16/17 at 12:00; Stop 01/31/17 at 23: 55 Warfarin Sodium (Coumadin) 4 mg DAILY@17 PO Last administered on 01/23/17 16: 48; Start 01/22/17 at 17:00; Stop 01/29/17 at 16:59 XIOMARA WARREN MD Jan 24, 2017 17:16
[2017-01-24] MEDS: WARFARIN SOD 4 MG TAB PO SCH (17:42)
[2017-01-24] MEDS: rOPINIRole 1MG TAB PO SCH (21:08)
[2017-01-24] MEDS: TAMSULOSIN 0.4 MG CAP PO SCH (21:08)
[2017-01-24] MEDS: GABAPENTIN 300 MG CAP PO SCH (21:09)
[2017-01-24] MEDS: ANALGESIC BALM CRM 120 GM TOP PRN (21:09)
[2017-01-24 21:35] VITALS: BP 115/64
[2017-01-25 06:00] VITALS: BP 137/67
[2017-01-25] MEDS: ACETAMINOPHEN 500 MG TAB PO SCH ×3 (06:20→22:12)
[2017-01-25] MEDS: LEVOTHYROXINE 25MCG TABLET (0.025MG) PO SCH (06:20)
[2017-01-25 07:02] LABS: INR 2.04
[2017-01-25] MEDS: PARoxetine 10MG TABLET PO SCH (08:21)
[2017-01-25] MEDS: LORATADINE 10 MG TAB PO SCH (08:21)
[2017-01-25] MEDS: DONEPEZIL 5 MG TAB PO SCH (08:21)
[2017-01-25] MEDS: GABAPENTIN 100 MG CAP PO SCH ×2 (08:21→16:40)
[2017-01-25] MEDS: MEMANTINE 5MG TABLET (NAMENDA) PO SCH ×2 (08:22→22:12)
[2017-01-25] MEDS: SENNA 8.6 MG TAB (SENOKOT) PO SCH ×2 (08:22→21:00)
[2017-01-25] MEDS: EYE OU SCH ×2 (08:22→22:13)
[2017-01-25] MEDS: RESTASIS 0.05% OU SCH ×2 (08:22→22:13)
[2017-01-25] MEDS: FLUTICASONE PROP 0.05% NASAL SPRAY 16 GM (FLONASE) SCH (08:23)
[2017-01-25] MEDS: ANALGESIC BALM CRM 120 GM TOP PRN (11:55)
[2017-01-25 14:00] VITALS: BP 138/73
--- NOTE | 2017-01-25 15:43 | IPNPDOC ---
PM&R Progress Note Tumbler Dyeing Machine Operator Progress Note DATE OF SERVICE: 01/25/17 DATE OF ADMISSION: Jan 16, 2017 at 12:10 INPATIENT REHABILITATION ADMISSION DAY: #10 SUBJECTIVE: The patient is a right-handed elderly white female who on 2016 was at the grocery store and ended up falling onto her left side with marked pain in her left hip and was found to have sustained a left hip fracture when brought to the emergency room at [facility]. The patient was assessed and felt to be appropriate for a cephalomedullary nail insertion, and this was performed on 01/14/2017. She has been previously living independently at home with a multitude of medical problems. Patient with some chronic diarrhea from Aricept and Namenda, which I am starting Senna to increase bulk to absorb and slow the bowel. Patient without complaints today except achy joints in neck, shoulders and knees. Patient is encouraged to request the arthritis rub medication from nursing if she needs it. ALLERGIES: See Below MEDICATIONS: Reviewed, see below. OBJECTIVE: VITAL SIGNS: Please see below. PHYSICAL EXAMINATION: GENERAL: Short well-nourished alert and oriented to person, place, general time and situation, elderly white female in very mild musculoskeletal distress favoring left hip. HEENT: Normocephalic/atraumatic and glasses for visual correction. CARDIOVASCULAR: Regular rate and rhythm with normal S1-S2. 2/4 bilateral radial pulses. LUNGS: All case clear auscultation. ABDOMEN: Normal bowel sounds in all quadrants. NEUROLOGICAL: Speech is clear coherent and appropriate. Affect is pleasant cooperative. Good functional motor range and strength in bilateral uppers and right lower extremities with some guarding of the left hip area. SKIN: Left hip incisions covered with foam dressing no significant drainage, heat, erythema and normal localized tenderness. LABORATORY DATA: Reviewed. Please see below. MICROBIOLOGY: Please see below. IMAGING: No new imaging studies. DVT prophylaxis ordered?: Coumadin, sequential compression stockings and LUCÍA hose. INR is 2.04 today and orthopedics as ordered 4 mg of Coumadin for 5 PM tonight. ASSESSMENT AND PLAN: 1. Left total hip fracture with closed reduction and cephalo-medullary nail fixation: Patient appears to be having reasonable pain control and is starting in physical and occupational therapy to work on ADLs, strength, endurance, balance and mobility. Anticipated length of stay is to 01/29/17. However, patient with some inconsistency of effort and performance, so we will consider increasing stay as she continues to participate and progress if it is at a slow rate due to the OBS. 2. OBS: Speech therapy starting evaluation today. Patient seems to be showing better motivation and focus in the morning versus last night. Patient continues on Aricept and Namenda. We will try and work with patient to structure and organize memory and cognition to allow her the best learning experience in therapies. TEACHER ELEMENTARY SCHOOL notes tendency to perseverate on certain topics. Senna 17.2 BID now to help with stool formation. 3. Anemia: H&H is 9.6 & 29.1% on 01/23/17. We will continue to follow this along with blood pressures/heart rate. 4. Hypoalbuminemia: Currently had 2.6 for albumin on 01/23/17. This is slightly improved. We will continue to follow this and try and improve nutrition to aid healing. 5. Urinary Retention: Patient with some large PVR's and trouble clearing them. I have added Flomax 0.4mg QHS to her care regimen. Still some incontinence, I will order sit to void. Rehabilitation team note: While patient's effort is somewhat inconsistent which is due to her OBS she is overall making some progress however generally does need some supervision and occasionally a little contact guard assistance. However patient does tend arises challenges and is expected that by Sunday she will be able return home with the planned assistance from seniors helping seniors. She will need to continue on Coumadin and return to orthopedic clinic with and about a week to have allen removed. Please see attached therapy notes below. TIME SPENT: Chart Review, examination and documentation required greater than 25 minutes. Patient: Ann Bloom : 1930 Age/Sex: 86/F Unit#: [id number] Room/Bed: M4143/01 User: LUIS Pryor Date: 01/25/17 12:02 Type: OT Progress Time In * 10:30 Time Out * 10:58 OT Treatment Time-Minutes * 28 mins Type of Therapy Provided * Individual Precautions * Fall * WBAT Unit * Acute Inpatient Rehab Pain Start of Session * 6 Pain: During Session * 6 Pain End of Session * 6 Pain Comment * pt reports 6/10 pain (lt) LE Subjective * pt agreeable to ot session Cognition Comments * diminished memory/carryover of new learning Bed Mobility Notes * n/t Sit to Stand * Standby Assist Stand to Sit * Standby Assist Toilet/Commode * Standby Assist Functional Transfer Notes: * pt engages in functional sit to/from stand t/f, bedroom/bathroom mobility with 2ww and standby assist, toilet t/f (commode over toilet) with standby assist. ADL Training Note * grooming and hand hygiene in standing at sink with supervision. pt trials 3 pairs of personal shoes, wearing sneakers t/o session. pt requires min assist for donning, jamison benefit from additional AE training next session to include elastic laces and LH shoehorn. A. Eating (include only those with PO intake): * 05.Setup/clean up Asst C. Toileting Hygiene (not transfers): * 05.Setup/clean up Asst Toileting Hygiene Comments: * standby assist H. Putting on/taking off footwear (includes TEDS and AFO): * 03.Partial/Mod Assist Putting on/taking off footwear Comments: * sneakers trialed this session Sit-Static * G Sit-Dynamic * G- Stand-Static * G- Stand-Dynamic * G- Balance Training Note * no LOB: all dynamic standing tasks with supervision this session. walker used during standing activity. OT Intervention Note * pt demonstrates improved standing balance this session as compared to earlier this AM, possibly d/t footwear. toileting also completed without any JACKIE this session. pt continues to benefit from encouragement to engage in adl tasks at max level of (I). will continue per ot plan of care to maximize safety/(I) prior to d/c. Discharge Recommendations * Home w/services Safe for discharge at this time * No Patient: Ann Bloom : 1930 Age/Sex: 86/F Unit#: [id number] Room/Bed: [place] [address] User: Delicia Cotto PT PT Date: 01/24/17 15:54 Type: PT Progress Note Time In * 14:50 Time Out * 15:20 PT Treatment Time-Minutes * 30 mins Type of Therapy Provided * Individual Precautions * Fall * WBAT Unit * Acute Inpatient Rehab Pain Comment * no major note of pain at this time. Subjective * Pt was in good spirits. She states that she is fatigued and very cold at this time. Pt was left supine in bed t/o session in an effort to keep her warm however she was willing to complete ambulation at this time. Cognition * Impaired Cognition Comments * improved carryover with safety techniques noted this session Supine to Sit * Not Tested Sit to Supine * Not Tested Rolling * Not Tested Bed Mobility Notes * in bed t/o session Sit to Stand * Not Tested Stand to Sit * Not Tested Bed to Chair * Not Tested Chair to Bed * Not Tested Toilet/Commode * Not Tested Sit-Static * G Sit-Dynamic * G- Stand-Static * G Stand-Dynamic * G- Balance Training Note * sitting observed at EOB, standing observed with RW during dyn standing bal theract and functional transfer Ambulation Level of Assist * Not Tested Wheelchair Mobility Level of Assist * Not Tested Stair Training Note * no stairs at home per pt. addressed threshold for entry into home A. Roll Left and Right: * 88.Not Attempted B. Sit to Lying: * 88.Not Attempted C. Lying to Sitting on Side of Bed: * 88.Not Attempted D. Sit to Stand: * 88.Not Attempted E. Chair/Sta-ww-Kuzqt Transfer: * 88.Not Attempted F. Toilet Transfer: * 88.Not Attempted G. Car Transfer: * 88.Not Attempted H. Does the patient walk?: * 2. Yes I. Walk 10 Feet: * 88.Not Attempted J. Walk 50' with Two Turns: * 88.Not Attempted K. Walk 150 Feet: * 88.Not Attempted L. Walking 10' on uneven surfaces: * 88.Not Attempted M. 1 Step (curb): * 88.Not Attempted N. 4 Steps (with or without railing): * 88.Not Attempted O. 12 Steps (with or without railing): * 88.Not Attempted P. Picking up Object from the Floor (from a standing): * 88.Not Attempted Q. Does the patient use a w/c (other than just transport): * 0. No Lower Extremity Exercised * Bilateral Supine Exercises * Ankle Pumps * Quad Sets * Glut Sets * Heel Slides * Hip Abductions * Straight Leg Raises * Hip Adduction Number of Reps Supine * 15-20 Reps Therapeutic Exercises Note * no adverse effects following ther ex; VC provided throughout for technique and to maximize range. PT Interventions * Gait Training * Therapeutic Excercise * Functional Training * Balance Activities * Safety/Precautions * Pt./Family Education PT Progress Note * Pt con't to c/o temperature stating she feels cold. Nursing is notified. pt is given extra blankets. pt was willing to participate in therapy and was able to complete teach back method for supine exercises with VCs and assistance with counting. will con't to work on this. She states she understands that these exercise sheets will be set home with her to complete upon return. She was left supine in bed with her personal items in reach and call gonzales in hand. Nursing was notified. PT Goal Note * progress ambulation distance Discharge Recommendations * Home w/services Safe for discharge at this time * No Allergies Coded Allergies: Diclofenac (Verified Allergy, Intermediate, RASH, 09/05/13) Bee Venom (Unverified Allergy, Unknown, SWELLING, 06/15/12) Octavia (Unverified Allergy, Unknown, MOUTH SWELLING, 06/01/09) TAPE (Verified Allergy, Unknown, SENSITIVE TO TAPE, 04/21/08) Vital Signs Vital Signs Date Time Temp Pulse Resp B/P (MAP) Pulse Ox O2 Delivery O2 Flow Rate FiO2 01/25/17 14:00 99.5 94 18 138/73 (94) 95 Room Air Laboratory Data Labs 24H Laboratory Tests 2 01/25/17 06:26: Prothrombin Time 23.8H, Prothromb Time International Ratio 2.04 Microbiology Microbiology 01/18/17 Gastrointestinal Tract Panel (PCR) - Final, Complete 01/17/17 Stool Occult Blood (FRANKLIN) - Final, Complete Current Medications Current Medications Current Medications Acetaminophen (Tylenol Tab) 1,000 mg Q8H PO Last administered on 01/25/17 14: 48; Start 01/16/17 at 14:00; Stop 02/15/17 at 13:59 Donepezil HCl (AriCEPT) 10 mg DAILY PO Last administered on 01/25/17 08:21; Start 01/17/17 at 09:00; Stop 02/16/17 at 08:59 Fluticasone Propionate (Flonase 0.05% Nasal [place]) 2 spray DAILY NA Last administered on 01/25/17 08:23; Start 01/17/17 at 09:00; Stop 02/16/17 at 08: 59 Gabapentin (Neurontin) 100 mg BID@0800,1600 PO Last administered on 01/25/17 08:21; Start 01/16/17 at 16:00; Stop 02/15/17 at 15:59 Gabapentin (Neurontin) 600 mg QHS PO Last administered on 01/24/17 21:09; Start 01/16/17 at 21:00; Stop 02/15/17 at 20:59 Levothyroxine Sodium (Synthroid) 25 mcg DAILY@06 PO Last administered on 06:20; Start 01/17/17 at 06:00; Stop 02/16/17 at 05:59 Loratadine (Claritin) 10 mg DAILY PO Last administered on 01/25/17 08:21; Start 01/17/17 at 09:00; Stop 02/16/17 at 08:59 Memantine (Namenda) 5 mg BID PO Last administered on 01/25/17 08:22; Start 01/16/17 at 21:00; Stop 02/15/17 at 20:59 Menthol/Methyl Salicylate (Bengay Cream) to neck, shoulders, knees TID PRN TOP PAIN Last administered on 01/25/17 11:55; Start 01/22/17 at 15:30; Stop at 15:29 Miscellaneous (Unresolved Patient Own Med Order) SEE LABEL COMMENTS UNRESOLVED XX ; Start 01/22/17 at 00:01; Stop 01/22/17 at 11:07; Status DC Paroxetine HCl (PAXil) 10 mg DAILY PO Last administered on 01/25/17 08:21; Start 01/17/17 at 09:00; Stop 02/16/17 at 08:59 Patient Own Medication (Patient'S Own Med) 1 ea BID OU Last administered on 08:22; Start 01/22/17 at 09:00; Stop 02/21/17 at 08:59 Ropinirole HCl (Requip) 1 mg QHS PO Last administered on 01/24/17 21:08; Start 01/16/17 at 21:00; Stop 02/15/17 at 20:59 Senna (Senokot) 1 tab BID PO Last administered on 01/19/17 08:41; Start 01/16 at 21:00; Stop 01/19/17 at 08:54; Status DC Senna (Senokot) 2 tab BID PO Last administered on 01/22/17 09:33; Start 12/26 at 21:00; Stop 02/18/17 at 20:59 Tamsulosin HCl (Flomax) 0.4 mg QHS PO Last administered on 01/24/17 21:08; Start 01/18/17 at 21:00; Stop 02/17/17 at 20:59 Tramadol HCl (Ultram) 50 mg Q6HP PRN PO MODERATE PAIN (PS 6-10) Last administered on 01/23/17 16:49; Start 01/16/17 at 12:00; Stop 01/31/17 at 23: 55 Warfarin Sodium (Coumadin) 4 mg DAILY@17 PO Last administered on 01/24/17 17: 42; Start 01/22/17 at 17:00; Stop 01/29/17 at 16:59 XIOMARA WARREN MD Jan 25, 2017 15:43
[2017-01-25] MEDS: WARFARIN SOD 4 MG TAB PO SCH (16:40)
[2017-01-25] MEDS: traMADol 50 MG TAB PO PRN (20:40)
[2017-01-25 21:00] VITALS: BP 120/58
[2017-01-25] MEDS: rOPINIRole 1MG TAB PO SCH (22:12)
[2017-01-25] MEDS: TAMSULOSIN 0.4 MG CAP PO SCH (22:12)
[2017-01-25] MEDS: GABAPENTIN 300 MG CAP PO SCH (22:12)
[2017-01-26] MEDS: LEVOTHYROXINE 25MCG TABLET (0.025MG) PO SCH (05:59)
[2017-01-26 06:00] VITALS: BP 138/73
[2017-01-26] MEDS: ACETAMINOPHEN 500 MG TAB PO SCH ×3 (06:00→20:47)
[2017-01-26 06:55] LABS: INR 2.15
[2017-01-26] MEDS: PARoxetine 10MG TABLET PO SCH (08:20)
[2017-01-26] MEDS: EYE OU SCH ×2 (08:21→20:48)
[2017-01-26] MEDS: SENNA 8.6 MG TAB (SENOKOT) PO SCH ×2 (08:21→20:48)
[2017-01-26] MEDS: traMADol 50 MG TAB PO PRN ×2 (08:21→16:49)
[2017-01-26] MEDS: GABAPENTIN 100 MG CAP PO SCH ×2 (08:21→16:49)
[2017-01-26] MEDS: LORATADINE 10 MG TAB PO SCH (08:21)
[2017-01-26] MEDS: RESTASIS 0.05% OU SCH ×2 (08:21→20:48)
[2017-01-26] MEDS: DONEPEZIL 5 MG TAB PO SCH (08:21)
[2017-01-26] MEDS: FLUTICASONE PROP 0.05% NASAL SPRAY 16 GM (FLONASE) SCH (08:21)
[2017-01-26] MEDS: MEMANTINE 5MG TABLET (NAMENDA) PO SCH ×2 (10:36→20:47)
[2017-01-26 14:00] VITALS: BP 131/69
[2017-01-26] MEDS: WARFARIN SOD 2.5 MG TAB PO SCH (16:49)
[2017-01-26] MEDS: TAMSULOSIN 0.4 MG CAP PO SCH (20:46)
[2017-01-26] MEDS: rOPINIRole 1MG TAB PO SCH (20:46)
[2017-01-26] MEDS: GABAPENTIN 300 MG CAP PO SCH (20:47)
[2017-01-26] MEDS: ANALGESIC BALM CRM 120 GM TOP PRN (20:49)
[2017-01-26 20:51] VITALS: BP 126/62
[2017-01-27] MEDS: traMADol 50 MG TAB PO PRN ×2 (00:36→15:10)
[2017-01-27] MEDS: ACETAMINOPHEN 500 MG TAB PO SCH ×3 (04:47→20:46)
[2017-01-27] MEDS: LEVOTHYROXINE 25MCG TABLET (0.025MG) PO SCH (04:48)
[2017-01-27 05:00] VITALS: BP 132/70
[2017-01-27 07:09] LABS: INR 2.07
[2017-01-27] MEDS: SENNA 8.6 MG TAB (SENOKOT) PO SCH ×2 (09:00→20:48)
[2017-01-27] MEDS: DONEPEZIL 5 MG TAB PO SCH (09:05)
[2017-01-27] MEDS: EYE OU SCH ×2 (09:05→20:47)
[2017-01-27] MEDS: RESTASIS 0.05% OU SCH ×2 (09:05→20:47)
[2017-01-27] MEDS: MEMANTINE 5MG TABLET (NAMENDA) PO SCH ×2 (09:05→20:47)
[2017-01-27] MEDS: FLUTICASONE PROP 0.05% NASAL SPRAY 16 GM (FLONASE) SCH (09:06)
[2017-01-27] MEDS: LORATADINE 10 MG TAB PO SCH (09:06)
[2017-01-27] MEDS: PARoxetine 10MG TABLET PO SCH (09:06)
[2017-01-27] MEDS: GABAPENTIN 100 MG CAP PO SCH ×2 (09:06→15:10)
[2017-01-27] MEDS ORDERED: ONDANSETRON 4 MG TAB (S0181) PO PRN (09:45)
[2017-01-27 14:00] VITALS: BP 139/72
[2017-01-27] MEDS: ANALGESIC BALM CRM 120 GM TOP PRN ×2 (14:42→20:48)
[2017-01-27] MEDS: WARFARIN SOD 2.5 MG TAB PO SCH (16:15)
[2017-01-27] MEDS: TAMSULOSIN 0.4 MG CAP PO SCH (20:47)
[2017-01-27] MEDS: GABAPENTIN 300 MG CAP PO SCH (20:47)
[2017-01-27] MEDS: rOPINIRole 1MG TAB PO SCH (20:47)
[2017-01-27 21:00] VITALS: BP 114/61
[2017-01-28] MEDS: traMADol 50 MG TAB PO PRN ×3 (02:14→20:04)
[2017-01-28 04:38] VITALS: BP 142/65
[2017-01-28] MEDS: LEVOTHYROXINE 25MCG TABLET (0.025MG) PO SCH (06:40)
[2017-01-28] MEDS: ACETAMINOPHEN 500 MG TAB PO SCH ×3 (06:40→22:17)
[2017-01-28 07:08] LABS: INR 1.91
[2017-01-28] MEDS: RESTASIS 0.05% OU SCH ×2 (09:12→20:03)
[2017-01-28] MEDS: GABAPENTIN 100 MG CAP PO SCH ×2 (09:12→17:14)
[2017-01-28] MEDS: EYE OU SCH ×2 (09:12→20:03)
[2017-01-28] MEDS: MEMANTINE 5MG TABLET (NAMENDA) PO SCH ×2 (09:12→20:03)
[2017-01-28] MEDS: PARoxetine 10MG TABLET PO SCH (09:13)
[2017-01-28] MEDS: DONEPEZIL 5 MG TAB PO SCH (09:13)
[2017-01-28] MEDS: LORATADINE 10 MG TAB PO SCH (09:13)
[2017-01-28] MEDS: SENNA 8.6 MG TAB (SENOKOT) PO SCH ×2 (09:13→20:03)
[2017-01-28] MEDS: ANALGESIC BALM CRM 120 GM TOP PRN (09:14)
[2017-01-28] MEDS: FLUTICASONE PROP 0.05% NASAL SPRAY 16 GM (FLONASE) SCH (09:14)
[2017-01-28 14:00] VITALS: BP 110/58
[2017-01-28] MEDS: WARFARIN SOD 2.5 MG TAB PO SCH (17:14)
[2017-01-28 20:00] VITALS: BP 131/71
[2017-01-28] MEDS: GABAPENTIN 300 MG CAP PO SCH (20:03)
[2017-01-28] MEDS: rOPINIRole 1MG TAB PO SCH (20:03)
[2017-01-28] MEDS: TAMSULOSIN 0.4 MG CAP PO SCH (20:03)
[2017-01-29] MEDS: LEVOTHYROXINE 25MCG TABLET (0.025MG) PO SCH (05:58)
[2017-01-29] MEDS: ACETAMINOPHEN 500 MG TAB PO SCH (05:59)
[2017-01-29 06:00] VITALS: BP 110/56
[2017-01-29 07:10] LABS: INR 1.74
[2017-01-29] MEDS ORDERED: COUM2.5T17 PO (07:40)
[2017-01-29] MEDS: PARoxetine 10MG TABLET PO SCH (09:49)
[2017-01-29] MEDS: LORATADINE 10 MG TAB PO SCH (09:49)
[2017-01-29] MEDS: SENNA 8.6 MG TAB (SENOKOT) PO SCH (09:50)
[2017-01-29] MEDS: DONEPEZIL 5 MG TAB PO SCH (09:50)
[2017-01-29] MEDS: GABAPENTIN 100 MG CAP PO SCH (09:50)
[2017-01-29] MEDS: RESTASIS 0.05% OU SCH (09:51)
[2017-01-29] MEDS: EYE OU SCH (09:51)
[2017-01-29 09:52] VITALS: BP 129/71
[2017-01-29] MEDS: FLUTICASONE PROP 0.05% NASAL SPRAY 16 GM (FLONASE) SCH (09:52)
[2017-01-29] MEDS: traMADol 50 MG TAB PO PRN (09:52)
[2017-01-29] MEDS: MEMANTINE 5MG TABLET (NAMENDA) PO SCH (09:52)
--- NOTE | 2017-01-29 09:54 | REP ---
Clinical: Postoperative baseline. Technique: AP and frog-lateral views of the left hip. Comparison: 01/14/2017. Findings: The patient is status post intramedullary law and compression screw for comminuted intertrochanteric left hip fracture. Orthopedic hardware and osseous components appear stable and satisfactory position. Free fragments related to the lesser trochanter are noted along with underlying age-related degenerative changes. Overlying postsurgical changes include soft tissue swelling and small amounts of subcutaneous emphysema. Impression: Status post open reduction and fixation for comminuted intertrochanteric left hip fracture. Signed by Lacho Patton MD 01/29/2017 09:46 A
[2017-01-29] MEDS ORDERED: WARFARIN SOD 4 MG TAB PO SCH (17:00)
[2017-01-30] MEDS ORDERED: TRAM50TA2 PO (14:37)
== END 2017-01-29 12:00 | disposition home health service (06) | DRG 561 ==
LOC: M PM&R 12:10
PROVIDERS: ADMIT Physical Medicine & Rehabilitation; ATTEND Physical Medicine & Rehabilitation
DX: S72.142D Displaced intertrochanteric fracture of left femur, subsequent encounter for closed fracture with routine healing (principal); I25.10 Atherosclerotic heart disease of native coronary artery without angina pectoris; I10 Essential (primary) hypertension; E78.5 Hyperlipidemia, unspecified; E03.9 Hypothyroidism, unspecified; R33.9 Retention of urine, unspecified; M81.0 Age-related osteoporosis without current pathological fracture; D72.829 Elevated white blood cell count, unspecified; M54.9 Dorsalgia, unspecified; M48.00 Spinal stenosis, site unspecified; M19.031 Primary osteoarthritis, right wrist; R94.6 Abnormal results of thyroid function studies; D64.9 Anemia, unspecified; F32.9 Major depressive disorder, single episode, unspecified; J30.9 Allergic rhinitis, unspecified; F41.9 Anxiety disorder, unspecified; R53.1 Weakness; M19.032 Primary osteoarthritis, left wrist; M19.041 Primary osteoarthritis, right hand; M19.042 Primary osteoarthritis, left hand; G62.9 Polyneuropathy, unspecified; F03.90 Unspecified dementia, unspecified severity, without behavioral disturbance, psychotic disturbance, mood disturbance, and anxiety; R19.7 Diarrhea, unspecified; Z79.899 Other long term (current) drug therapy; Z91.018 Allergy to other foods; Z91.030 Bee allergy status; Z91.048 Other nonmedicinal substance allergy status; Z88.6 Allergy status to analgesic agent

== ENCOUNTER → 2017-01-31 | Outpatient (REF) | payer MEDICARE, OTHER ==
[2017-01-31 14:26] LABS: INR 1.3
== END ==
LOC: M LAB REF 12:31
PROVIDERS: ATTEND Physical Medicine & Rehabilitation
DX: Z79.01 Long term (current) use of anticoagulants (principal)

== ENCOUNTER → 2017-02-05 | Outpatient (REF) | payer MEDICARE, OTHER ==
[2017-02-05 12:35] LABS: INR 1.6
== END ==
LOC: M LABDRAW1 11:26
PROVIDERS: ATTEND Nurse Practitioner Family
DX: Z79.01 Long term (current) use of anticoagulants (principal)

== ENCOUNTER → 2017-02-08 | Outpatient (REF) | payer MEDICARE, OTHER ==
[2017-02-08 16:04] LABS: INR 2.77
== END ==
LOC: M LAB REF 15:18
PROVIDERS: ATTEND Physical Medicine & Rehabilitation
DX: Z79.01 Long term (current) use of anticoagulants (principal)

== ENCOUNTER 2017-04-21 08:24 | Emergency (ER) | payer MEDICARE, OTHER ==
[2017-04-21] MEDS ORDERED: ACETAMINOPHEN TAB 650MG DOSE (2X325MG) PO (08:45)
== END 2017-04-21 11:14 | disposition home or self-care (01) ==
LOC: M ED 08:24
DX: M79.662 Pain in left lower leg (principal); M17.12 Unilateral primary osteoarthritis, left knee; I10 Essential (primary) hypertension; E78.5 Hyperlipidemia, unspecified; E07.9 Disorder of thyroid, unspecified; F03.90 Unspecified dementia, unspecified severity, without behavioral disturbance, psychotic disturbance, mood disturbance, and anxiety; M54.9 Dorsalgia, unspecified; G89.29 Other chronic pain; F41.9 Anxiety disorder, unspecified; F33.9 Major depressive disorder, recurrent, unspecified; Z79.890 Hormone replacement therapy; Z79.899 Other long term (current) drug therapy; Z91.048 Other nonmedicinal substance allergy status; Z88.8 Allergy status to other drugs, medicaments and biological substances; Z91.018 Allergy to other foods; Z91.030 Bee allergy status; Z98.890 Other specified postprocedural states
CPT/HCPCS: 73564

== ENCOUNTER → 2017-05-02 | Outpatient (REF) | payer MEDICARE, OTHER | LOC: M SMT 13:18 | DX: N39.41 Urge incontinence (principal) | CPT/HCPCS: 87086 ==

== ENCOUNTER 2017-05-15 07:28 | Emergency (ER) | payer MEDICARE, OTHER ==
[2017-05-15] MEDS: ASPIRIN 81 MG CHEW TABLET PO (08:28)
[2017-05-15 08:34] LABS: BASO # 0.1 10^3/uL (0.0-0.2); BASO % 0.6 % (0.0-1.0); EOS # 0.4 10^3/uL (0.0-0.50); EOS % 5.1 % (0.0-3.0); HEMOGLOBIN 13.5 g/dl (12.0-16.0); IMMATURE GRANULOCYTE % 0.2 % (0-3.0); LYMPH % 24.4 % (24.0-44.0); MEAN CORPUSCULAR HEMOGLOBIN 29.7 pg (27.0-33.0); MEAN CORPUSCULAR HGB CONC 33.8 g/dl (32.0-36.5); MEAN CORPUSCULAR VOLUME 88.1 fl (80.0-96.0); MONO # 0.6 10^3/uL (0.0-0.8); MONO % 7.9 % (0.0-5.0); NEUTROPHILS % 61.8 % (36.0-66.0); PLATELET COUNT, AUTOMATED 377 10^3/uL (150-450); RED BLOOD COUNT 4.54 10^6/uL (4.00-5.40); RED CELL DISTRIBUTION WIDTH 13.4 % (11.5-14.5); WHITE BLOOD COUNT 8.1 10^3/uL (4.0-10.0)
[2017-05-15 08:44] LABS: INR 0.94; PROTHROMBIN TIME 12.6 SECONDS (12.4-14.5)
[2017-05-15 08:54] LABS: NT-PRO BNP 217 PG/ML (<450)
[2017-05-15 08:56] LABS: ALBUMIN 3.7 GM/DL (3.2-5.2); ALBUMIN/GLOBULIN RATIO 1.09 (1.00-1.93); ALKALINE PHOSPHATASE 86 U/L (45-117); ALT/SGPT 15 U/L (12-78); ANION GAP 7 MEQ/L (8-16); AST/SGOT 12 U/L (7-37); BILIRUBIN,DIRECT 0.1 MG/DL (0.0-0.2); BILIRUBIN,TOTAL 0.6 MG/DL (0.2-1.0); BLOOD UREA NITROGEN 11 MG/DL (7-18); CALCIUM LEVEL 8.9 MG/DL (8.8-10.2); CARBON DIOXIDE LEVEL 25 MEQ/L (21-32); CHLORIDE LEVEL 108 MEQ/L (98-107); CPK CREATINE PHOSPHOKINASE 29 U/L (26-192); CREATININE FOR GFR 0.69 MG/DL (0.55-1.30); GLOMERULAR FILTRATION RATE > 60.0 (>32); GLUCOSE, FASTING 98 MG/DL (70-100); POTASSIUM SERUM 4.3 MEQ/L (3.5-5.1); SODIUM LEVEL 140 MEQ/L (136-145); TOTAL PROTEIN 7.1 GM/DL (6.4-8.2); TROPONIN I < 0.02 NG/ML (< 0.10)
[2017-05-15 08:59] LABS: MB/CK RELATIVE INDEX 3.44 (< OR =4)
[2017-05-15 11:04] LABS: CPK CREATINE PHOSPHOKINASE 29 U/L (26-192); MB/CK RELATIVE INDEX 3.44 (< OR =4); TROPONIN I < 0.02 NG/ML (< 0.10)
== END 2017-05-15 12:15 | disposition home or self-care (01) ==
LOC: M ED 07:28
DX: R07.9 Chest pain, unspecified (principal); R06.02 Shortness of breath; I10 Essential (primary) hypertension; E78.5 Hyperlipidemia, unspecified; F33.9 Major depressive disorder, recurrent, unspecified; F41.9 Anxiety disorder, unspecified; E03.9 Hypothyroidism, unspecified; M81.0 Age-related osteoporosis without current pathological fracture; Z87.440 Personal history of urinary (tract) infections; Z87.2 Personal history of diseases of the skin and subcutaneous tissue; Z98.890 Other specified postprocedural states; Z91.030 Bee allergy status; Z88.8 Allergy status to other drugs, medicaments and biological substances; Z91.018 Allergy to other foods; Z91.048 Other nonmedicinal substance allergy status
CPT/HCPCS: 71045

== ENCOUNTER → 2017-09-24 | Outpatient (REF) | payer MEDICARE, OTHER ==
[2017-09-24 18:48] LABS: C REACTIVE PROTEIN QUANTITATIV < 0.30 MG/DL (0.00-0.30)
== END ==
LOC: M LAB REF 18:08
DX: R53.83 Other fatigue (principal); R53.1 Weakness; R53.81 Other malaise
CPT/HCPCS: 86140

== ENCOUNTER → 2017-10-30 | Outpatient (REF) | payer MEDICARE, OTHER ==
[2017-10-30 17:05] LABS: APPEARANCE, URINE HAZY (CLEAR); BACTERIA, URINE AUTO 1+ (NEGATIVE); BILIRUBIN, URINE AUTO NEGATIVE (NEGATIVE); BLOOD, URINE BLOOD NEGATIVE (NEGATIVE); COLOR, URINE YELLOW (YELLOW); GLUCOSE, URINE (UA) AUTO NEGATIVE (NEGATIVE); KETONE, URINE AUTO NEGATIVE (NEGATIVE); LEUKOCYTE ESTERASE, URINE AUTO NEGATIVE (NEGATIVE); NITRITE, URINE AUTO NEGATIVE (NEGATIVE); PROTEIN, URINE AUTO NEGATIVE (NEGATIVE); RBC, URINE AUTO 1 /HPF (0-3); SPECIFIC GRAVITY URINE AUTO 1.011 (1.002-1.035); SQUAMOUS EPITHELIAL CELL UR AU 4 /HPF (0-6); UROBILINOGEN, URINE AUTO 0.2 mg/dL (0.0-2.0); WBC, URINE AUTO 4 /HPF (0-3)
== END ==
LOC: M SMT 16:02
DX: N39.41 Urge incontinence (principal)
CPT/HCPCS: 81001

== ENCOUNTER 2017-12-22 17:46 | Inpatient (IN) | payer MEDICARE, OTHER ==
[2017-12-22] MEDS: ACETAMINOPHEN TAB 650MG DOSE (2X325MG) PO (18:15)
[2017-12-22] MEDS: NS 1,000 ML IV ×2 (18:18→23:03)
[2017-12-22 18:31] LABS: BASO % 0.3 % (0.0-1.0); EOS # 0.1 10^3/uL (0.0-0.50); EOS % 0.7 % (0.0-3.0); HEMATOCRIT 39.7 % (36.0-47.0); HEMOGLOBIN 13.4 g/dl (12.0-15.5); IMMATURE GRANULOCYTE % 0.4 % (0-3.0); LYMPH # 1.3 10^3/uL (1.5-4.5); MEAN CORPUSCULAR HEMOGLOBIN 31.2 pg (27.0-33.0); MEAN CORPUSCULAR HGB CONC 33.8 g/dl (32.0-36.5); MEAN CORPUSCULAR VOLUME 92.3 fl (80.0-96.0); MONO # 1.2 10^3/uL (0.0-0.8); MONO % 8.1 % (0.0-5.0); NEUTROPHILS # 11.8 10^3/uL (1.8-7.7); NEUTROPHILS % 81.5 % (36.0-66.0); PLATELET COUNT, AUTOMATED 319 10^3/uL (150-450); RED CELL DISTRIBUTION WIDTH 13.2 % (11.5-14.5); WHITE BLOOD COUNT 14.5 10^3/uL (4.0-10.0)
[2017-12-22 18:42] LABS: LACTIC ACID SEPSIS PROTOCOL 1.1 MMOL/L (0.4-2.0)
[2017-12-22 19:09] LABS: ACETAMINOPHEN LEVEL < 2.0 UG/ML (10.0-30.0); ALBUMIN 3.4 GM/DL (3.2-5.2); ALKALINE PHOSPHATASE 81 U/L (45-117); ALT/SGPT 23 U/L (12-78); ANION GAP 6 MEQ/L (8-16); AST/SGOT 21 U/L (7-37); BILIRUBIN,DIRECT 0.1 MG/DL (0.0-0.2); BILIRUBIN,TOTAL 0.5 MG/DL (0.2-1.0); BLOOD UREA NITROGEN 18 MG/DL (7-18); CALCIUM LEVEL 8.2 MG/DL (8.8-10.2); CARBON DIOXIDE LEVEL 28 MEQ/L (21-32); CHLORIDE LEVEL 102 MEQ/L (98-107); CK-MB VALUE MASS < 1.0 NG/ML (<3.6); CPK CREATINE PHOSPHOKINASE 42 U/L (26-192); CREATININE FOR GFR 0.93 MG/DL (0.55-1.30); GLOMERULAR FILTRATION RATE > 60.0 (>32); GLUCOSE, FASTING 103 MG/DL (70-100); MB/CK RELATIVE INDEX 2.38 (< OR =4); POTASSIUM SERUM 4.7 MEQ/L (3.5-5.1); SALICYLATE LEVEL < 1.7 MG/DL (5.0-30.0); SODIUM LEVEL 136 MEQ/L (136-145); TOTAL PROTEIN 6.8 GM/DL (6.4-8.2); TROPONIN I < 0.02 NG/ML (< 0.10)
[2017-12-22 19:21] LABS: BILIRUBIN, URINE MANUAL NEGATIVE (NEGATIVE); GLUCOSE, URINE (UA) MANUAL NEGATIVE (NEGATIVE); KETONE, URINE MANUAL NEGATIVE (NEGATIVE); NITRITE, URINE MANUAL RFX POSITIVE (NEGATIVE); PROTEIN, URINE MANUAL REFLEX 2+ mg/dL (NEGATIVE); UROBILINOGEN, URINE MANUAL NORMAL (NORMAL)
[2017-12-22 19:22] LABS: BLOOD URINE MANUAL RFX POSITIVE (NEGATIVE); MICROSCOPIC INDICATED? RFX YES (NO)
[2017-12-22 19:23] LABS: BACTERIA, URINE MOD AMOUNT; HYALINE CAST, URINE NONE SEEN /lpf (0-1); MICROSCOPIC EXAM UNSPUN; RBC, URINE 0-1 /hpf (0-3); SQUAMOUS EPITHELIAL CELL URINE MOD AMOUNT /hpf (SMALL AMT); WBC, URINE MAN RFX TNTC /hpf (0-3)
[2017-12-22] MEDS: CIPROFLOXACIN 400 MG in APPROPRIATE DILUENT 1 EA IV (19:30)
[2017-12-22] MEDS ORDERED: NS 1,000 ML IV (20:44)
[2017-12-23] MEDS: ACETAMINOPHEN TAB 650MG DOSE (2X325MG) PO ×2 (01:57→08:37)
[2017-12-23] MEDS: LEVOTHYROXINE 25MCG TABLET (0.025MG) PO (06:00)
[2017-12-23 06:35] LABS: ANION GAP 6 MEQ/L (8-16); BLOOD UREA NITROGEN 12 MG/DL (7-18); CALCIUM LEVEL 7.9 MG/DL (8.8-10.2); CARBON DIOXIDE LEVEL 25 MEQ/L (21-32); CHLORIDE LEVEL 110 MEQ/L (98-107); GLOMERULAR FILTRATION RATE > 60.0 (>32); GLUCOSE, FASTING 101 MG/DL (70-100); POTASSIUM SERUM 3.8 MEQ/L (3.5-5.1); SODIUM LEVEL 141 MEQ/L (136-145)
[2017-12-23] MEDS: CIPROFLOXACIN 400 MG in APPROPRIATE DILUENT 1 EA IV ×2 (07:30→19:59)
[2017-12-23] MEDS: ENOXAPARIN 40 MG/0.4 ML SYRINGE (J1650) SC (07:31)
[2017-12-23] MEDS: MELOXICAM (MOBIC) 7.5 MG TAB PO (09:00)
[2017-12-23 10:24] LABS: MAGNESIUM LEVEL 2.1 MG/DL (1.8-2.4)
[2017-12-23 10:53] LABS: ERYTHROCYTE SEDIMENTATION RATE 51 mm/hr (0-42)
[2017-12-23] MEDS: PARoxetine 10MG TABLET PO (14:25)
[2017-12-23] MEDS: DONEPEZIL 5 MG TAB PO (14:25)
[2017-12-23] MEDS: GABAPENTIN 100 MG CAP PO (16:21)
[2017-12-23] MEDS: oxyBUTYnin 5 MG TAB PO (20:00)
[2017-12-23] MEDS: rOPINIRole 1MG TAB PO (20:00)
[2017-12-23] MEDS: MEMANTINE 5MG TABLET (NAMENDA) PO (20:00)
[2017-12-24] MEDS: ACETAMINOPHEN TAB 650MG DOSE (2X325MG) PO ×3 (00:48→17:44)
[2017-12-24] MEDS: LEVOTHYROXINE 25MCG TABLET (0.025MG) PO (05:56)
[2017-12-24 06:04] LABS: HEMATOCRIT 36.2 % (36.0-47.0); MEAN CORPUSCULAR HEMOGLOBIN 30.6 pg (27.0-33.0); MEAN CORPUSCULAR HGB CONC 33.1 g/dl (32.0-36.5); MEAN CORPUSCULAR VOLUME 92.3 fl (80.0-96.0); PLATELET COUNT, AUTOMATED 308 10^3/uL (150-450); RED BLOOD COUNT 3.92 10^6/uL (4.00-5.40); RED CELL DISTRIBUTION WIDTH 13.2 % (11.5-14.5); WHITE BLOOD COUNT 10.1 10^3/uL (4.0-10.0)
[2017-12-24 06:27] LABS: ANION GAP 8 MEQ/L (8-16); BLOOD UREA NITROGEN 10 MG/DL (7-18); CALCIUM LEVEL 8.5 MG/DL (8.8-10.2); CARBON DIOXIDE LEVEL 25 MEQ/L (21-32); CHLORIDE LEVEL 109 MEQ/L (98-107); CREATININE FOR GFR 0.72 MG/DL (0.55-1.30); GLOMERULAR FILTRATION RATE > 60.0 (>32); GLUCOSE, FASTING 96 MG/DL (70-100); MAGNESIUM LEVEL 2.3 MG/DL (1.8-2.4); POTASSIUM SERUM 3.9 MEQ/L (3.5-5.1); SODIUM LEVEL 142 MEQ/L (136-145)
[2017-12-24] MEDS: DONEPEZIL 5 MG TAB PO (07:39)
[2017-12-24] MEDS: PARoxetine 10MG TABLET PO (07:39)
[2017-12-24] MEDS: MEMANTINE 5MG TABLET (NAMENDA) PO ×2 (07:39→20:00)
[2017-12-24] MEDS: MELOXICAM (MOBIC) 7.5 MG TAB PO (07:39)
[2017-12-24] MEDS: CIPROFLOXACIN 400 MG in APPROPRIATE DILUENT 1 EA IV ×2 (07:39→19:54)
[2017-12-24] MEDS: GABAPENTIN 100 MG CAP PO ×2 (07:39→15:47)
[2017-12-24] MEDS: oxyBUTYnin 5 MG TAB PO ×2 (07:39→20:00)
[2017-12-24] MEDS: ENOXAPARIN 40 MG/0.4 ML SYRINGE (J1650) SC (07:40)
[2017-12-24] MEDS: rOPINIRole 1MG TAB PO (20:00)
[2017-12-25] MEDS: ACETAMINOPHEN TAB 650MG DOSE (2X325MG) PO (05:47)
[2017-12-25] MEDS: LEVOTHYROXINE 25MCG TABLET (0.025MG) PO (05:47)
[2017-12-25 05:59] LABS: HEMATOCRIT 36.4 % (36.0-47.0); HEMOGLOBIN 12.3 g/dl (12.0-15.5); MEAN CORPUSCULAR HGB CONC 33.8 g/dl (32.0-36.5); MEAN CORPUSCULAR VOLUME 91.7 fl (80.0-96.0); PLATELET COUNT, AUTOMATED 367 10^3/uL (150-450); RED BLOOD COUNT 3.97 10^6/uL (4.00-5.40); RED CELL DISTRIBUTION WIDTH 12.9 % (11.5-14.5); WHITE BLOOD COUNT 10.3 10^3/uL (4.0-10.0)
[2017-12-25 06:22] LABS: ANION GAP 6 MEQ/L (8-16); BLOOD UREA NITROGEN 9 MG/DL (7-18); CALCIUM LEVEL 8.8 MG/DL (8.8-10.2); CARBON DIOXIDE LEVEL 27 MEQ/L (21-32); CHLORIDE LEVEL 107 MEQ/L (98-107); CREATININE FOR GFR 0.83 MG/DL (0.55-1.30); GLOMERULAR FILTRATION RATE > 60.0 (>32); GLUCOSE, FASTING 106 MG/DL (70-100); MAGNESIUM LEVEL 2.2 MG/DL (1.8-2.4); POTASSIUM SERUM 4.4 MEQ/L (3.5-5.1); SODIUM LEVEL 140 MEQ/L (136-145)
[2017-12-25] MEDS ORDERED: VITAMIN A & D OINTMENT 60 GM TOP (07:45)
[2017-12-25] MEDS: LACTOBACILLUS ACIDOPHILUS CAP (BACID) PO (08:09)
[2017-12-25] MEDS: MEMANTINE 5MG TABLET (NAMENDA) PO (08:09)
[2017-12-25] MEDS: oxyBUTYnin 5 MG TAB PO (08:09)
[2017-12-25] MEDS: PARoxetine 10MG TABLET PO (08:09)
[2017-12-25] MEDS: GABAPENTIN 100 MG CAP PO (08:09)
[2017-12-25] MEDS: LevoFLOXacin 250 MG TABLET PO (08:09)
[2017-12-25] MEDS: ENOXAPARIN 40 MG/0.4 ML SYRINGE (J1650) SC (08:09)
[2017-12-25] MEDS: MELOXICAM (MOBIC) 7.5 MG TAB PO (08:09)
[2017-12-25] MEDS: DONEPEZIL 5 MG TAB PO (08:10)
[2017-12-25] MEDS: VITAMIN A & D OINTMENT 60 GM TOP (09:00)
== END 2017-12-25 10:36 | disposition home or self-care (01) | DRG 872 ==
LOC: M ED 17:46 → M ED INP 21:10 → M MSPAV 22:36
PROVIDERS: Internal Medicine
DX: A41.9 Sepsis, unspecified organism (principal); N39.0 Urinary tract infection, site not specified; R53.81 Other malaise; F03.90 Unspecified dementia, unspecified severity, without behavioral disturbance, psychotic disturbance, mood disturbance, and anxiety; I10 Essential (primary) hypertension; E78.5 Hyperlipidemia, unspecified; E03.9 Hypothyroidism, unspecified; R33.9 Retention of urine, unspecified; Z88.6 Allergy status to analgesic agent; Z79.899 Other long term (current) drug therapy; G62.9 Polyneuropathy, unspecified; B96.20 Unspecified Escherichia coli [E. coli] as the cause of diseases classified elsewhere; R19.7 Diarrhea, unspecified

== ENCOUNTER → 2018-03-08 | Outpatient (REF) | payer MEDICARE, OTHER ==
[~2018-03-08] MED LIST changes: -ALEN70TA39 PO; +ALEN70TA57 PO; +GABA-1171 PO; -GABA-279 PO; -GABA-283 PO; +GABA-845 PO; -GABA600T PO; +GABA600T4 PO; +LEVA250T13 PO; +LORA-243 PO; -LORA10TA2 PO; +MELO15TA28 PO; -MELO15TA4 PO
== END ==
LOC: M LAB REF 15:56
PROVIDERS: ATTEND Internal Medicine
DX: N39.0 Urinary tract infection, site not specified (principal)

== ENCOUNTER 2018-06-21 16:47 | Emergency (ER) | payer MEDICARE, OTHER ==
[~2018-06-21] VITALS: Ht 165.1 cm; Wt 68.2 kg
[~2018-06-21 16:47] MED LIST changes: -/CELE20CA; -ALEN70TA57 PO; +ALEN70TA74 PO; -ASPI1TAB PO; +ASPI81TA26 PO; +CELE1CAP4; +ERYT1OIN26 OU; -ERYT5OPO OU
[2018-06-21 17:33] LABS: BASO # 0.1 10^3/uL (0.0-0.2); BASO % 0.7 % (0.0-1.0); EOS # 0.5 10^3/uL (0.0-0.50); EOS % 6.2 % (0.0-3.0); HEMATOCRIT 38.8 % (36.0-47.0); LYMPH # 2.3 10^3/uL (1.5-4.5); LYMPH % 26.9 % (24.0-44.0); MEAN CORPUSCULAR HEMOGLOBIN 31.1 pg (27.0-33.0); MEAN CORPUSCULAR HGB CONC 33.5 g/dl (32.0-36.5); MEAN CORPUSCULAR VOLUME 92.8 fl (80.0-96.0); MONO # 0.8 10^3/uL (0.0-0.8); MONO % 9.2 % (0.0-5.0); NEUTROPHILS # 4.9 10^3/uL (1.8-7.7); NEUTROPHILS % 56.7 % (36.0-66.0); PLATELET COUNT, AUTOMATED 430 10^3/uL (150-450); RED BLOOD COUNT 4.18 10^6/uL (4.00-5.40); WHITE BLOOD COUNT 8.7 10^3/uL (4.0-10.0)
[2018-06-21 18:02] LABS: ALBUMIN 3.6 GM/DL (3.2-5.2); ALT/SGPT 17 U/L (12-78); BILIRUBIN,DIRECT < 0.1 MG/DL (0.0-0.2); BILIRUBIN,TOTAL 0.3 MG/DL (0.2-1.0); BLOOD UREA NITROGEN 13 MG/DL (7-18); CALCIUM LEVEL 9.1 MG/DL (8.8-10.2); CARBON DIOXIDE LEVEL 24 MEQ/L (21-32); CHLORIDE LEVEL 106 MEQ/L (98-107); CREATININE FOR GFR 0.81 MG/DL (0.55-1.30); GLOMERULAR FILTRATION RATE > 60.0 (>32); GLUCOSE, FASTING 100 MG/DL (70-100); LIPASE 150 U/L (73-393); POTASSIUM SERUM 4.1 MEQ/L (3.5-5.1); SODIUM LEVEL 138 MEQ/L (136-145); TOTAL PROTEIN 6.8 GM/DL (6.4-8.2)
[2018-06-21 18:35] VITALS: BP 154/90
[2018-06-21] MEDS ORDERED: NORCO, ANEXSIA 5/325MG TABLET (HYDROcodone/ACETAMINOPHEN) PO ONE (18:45)
[2018-06-21] MEDS ORDERED: BACT800T5 PO (19:34)
--- NOTE | 2018-06-21 19:36 | REP ---
CT abdomen and pelvis without IV or oral contrast: History: Right flank pain. Comparison CT study is from December 25, 2014. CT findings: Digital preliminary care coordinator radiograph demonstrates an orthopedic pin fixation device in the left proximal femur. There are degenerative changes of the lumbar spine. On axial CT images, the lung bases show mild bibasilar fibrosis; are otherwise clear. No pleural effusion is seen. The liver and the spleen are normal in size and homogeneous in texture. A very small sliding-type hiatal hernia is noted. No adrenal lesion is seen. There is an accessory splenule adjacent to the pancreatic tail which is unchanged. No pancreatic abnormality is observed. The gallbladder appears unremarkable. There is mild pancolonic diverticulosis without CT evidence of diverticulitis. No uterine or ovarian abnormality is seen. There is some diffuse thickening of the urinary bladder wall. This is most pronounced superiorly. No pelvic mass or adenopathy is seen. There is old post-traumatic deformity of the left anterior pelvis. No abdominal wall defect is seen. A normal retrocecal appendix is seen. There is no evidence of hydronephrosis or intrarenal calculus on either side. 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 Diffuse bladder wall thickening in the bladder dome. Pancolonic diverticulosis without evidence of diverticulitis. Normal appendix. No acute abdominal or pelvic abnormality. Electronically Signed by Liam Marshall MD 06/21/2018 08:17 P
[2018-06-21] MEDS ORDERED: BACTRIM 160MG/800MG DS TAB PO ONE (19:45)
== END 2018-06-21 19:59 | disposition home or self-care (01) ==
LOC: M ED 16:47
DX: N30.90 Cystitis, unspecified without hematuria (principal); I10 Essential (primary) hypertension; F03.90 Unspecified dementia, unspecified severity, without behavioral disturbance, psychotic disturbance, mood disturbance, and anxiety; E78.5 Hyperlipidemia, unspecified; E03.9 Hypothyroidism, unspecified; F33.9 Major depressive disorder, recurrent, unspecified; F41.9 Anxiety disorder, unspecified; Z79.899 Other long term (current) drug therapy; Z79.890 Hormone replacement therapy; Z88.8 Allergy status to other drugs, medicaments and biological substances

== ENCOUNTER → 2018-07-04 | Outpatient (REF) | payer MEDICARE, OTHER ==
[~2018-07-04] MED LIST changes: +BACT800T5 PO
== END ==
LOC: M LAB REF 12:45
PROVIDERS: ATTEND Nurse Practitioner Family
DX: N39.0 Urinary tract infection, site not specified (principal)

== ENCOUNTER → 2018-07-17 | Outpatient (REF) | payer MEDICARE, OTHER ==
[2018-07-17 17:44] LABS: APPEARANCE, URINE TURBID (CLEAR); BACTERIA, URINE AUTO 2+ (NEGATIVE); BILIRUBIN, URINE AUTO NEGATIVE (NEGATIVE); BLOOD, URINE BLOOD NEGATIVE (NEGATIVE); COLOR, URINE YELLOW (YELLOW); GLUCOSE, URINE (UA) AUTO NEGATIVE (NEGATIVE); KETONE, URINE AUTO NEGATIVE (NEGATIVE); LEUKOCYTE ESTERASE, URINE AUTO 3+ (NEGATIVE); NITRITE, URINE AUTO NEGATIVE (NEGATIVE); PROTEIN, URINE AUTO 2+ mg/dL (NEGATIVE); RBC, URINE AUTO 0 /HPF (0-3); SPECIFIC GRAVITY URINE AUTO 1.017 (1.002-1.035); SQUAMOUS EPITHELIAL CELL UR AU 2 /HPF (0-6); UROBILINOGEN, URINE AUTO 0.2 mg/dL (0.0-2.0); WBC, URINE AUTO TNTC /HPF (0-3)
== END ==
LOC: M LAB REF 17:03
PROVIDERS: ATTEND Internal Medicine
DX: G31.84 Mild cognitive impairment of uncertain or unknown etiology (principal)

== ENCOUNTER → 2018-08-26 | Outpatient (REF) | payer MEDICARE, OTHER | LOC: M LAB REF 09:55 | PROVIDERS: ATTEND Internal Medicine | DX: R19.7 Diarrhea, unspecified (principal) ==